=== PATIENT | male | born 1945 | race Caucasian/White ===

== ENCOUNTER → 2017-02-23 | Outpatient (CLI) | payer OTHER ==
[~2017-02-23] MED LIST: COQ10100 PO; METAMUCIL PO; METOPROLOL ER PO; MULT-506 PO; SIMV40TA2 PO; VITA400C15 PO
[2017-02-23 17:24] LABS: BASO % 0.2 %; BASO ABS # 0.02 K/uL (0-0.2); COMPLETE YES; EOS % 3.2 %; HEMATOCRIT 42.3 % (42-52); IG% 0.2 %; LYMPH % 31.3 %; MEAN CELL VOLUME 89.4 fL (80-100); MEAN CORPUSCULAR HEMOGLOBIN 30.7 pg (25-34); MEAN CORPUSCULAR HGB CONC 34.3 g/dl (32-36); MONO % 9.8 %; NEUT % 55.3 %; PLATELET COUNT 149 K/uL (130-400); RED BLOOD COUNT 4.73 M/uL (4.7-6.1); WHITE BLOOD COUNT 8.96 K/uL (4.8-10.8)
[2017-02-23 17:44] LABS: ALT/SGPT 27 U/L (12-78); AST/SGOT 15 U/L (15-37); BLOOD UREA NITROGEN 19 mg/dl (7-18); BUN/CREATININE RATIO 20.2 (10-20); CALCIUM 8.8 mg/dl (8.5-10.1); CARBON DIOXIDE 26 mmol/L (21-32); CHLORIDE 101 mmol/L (98-107); CREATININE 0.95 mg/dl (0.60-1.40); GLUCOSE 97 mg/dl (70-99); POTASSIUM 3.8 mmol/L (3.5-5.1); SODIUM 135 mmol/L (136-145)
[2017-02-23 17:55] LABS: ALB/GLOB RATIO 1.1 (0.9-2)
[2017-02-23 17:56] LABS: ALKALINE PHOSPHATASE 54 U/L (45-117); CHOLESTEROL 139 mg/dl (0-200); CHOLESTEROL/HDL RATIO 2.7; HDL CHOLESTEROL 52 mg/dl; LDL CHOLESTEROL CALCULATED 61 mg/dl; TRIGLYCERIDES 129 mg/dl (0-150); VERY LOW DENSITY LIPOPROT CALC 26 mg/dl
--- NOTE | 2017-03-03 12:12 | CODING QUERY MEDICAL NECESSITY ---
SUPPORTING DIAGNOSIS NEEDED A supporting diagnosis is required for the test/procedure performed on this patient in order for us to be reimbursed by the patient's insurance. Please provide a supporting diagnosis for the following test/procedure listed below next to the test name along with your signature. *If there is no additional diagnosis for this patient that would support the following test/procedure please document that below next to the test/procedure. Test(s)/Procedure(s) that require a supporting diagnosis: * VITAMIN D, 25-HYDROXY DIAGNOSIS: Provider Signature: Date: Thank you Inez Casas [place] Information Management Once completed, please kindly fax back to [phone] For questions please call [phone]
== END | disposition home or self-care (01) ==
LOC: C.LABBFT 10:34
PROVIDERS: ATTEND Internal Medicine Geriatric Medicine
DX: I10 Essential (primary) hypertension (principal); E78.5 Hyperlipidemia, unspecified; E87.1 Hypo-osmolality and hyponatremia; M86.9 Osteomyelitis, unspecified

== ENCOUNTER → 2017-07-15 | Outpatient (CLI) | payer OTHER ==
[2017-07-15 13:30] LABS: BLOOD UREA NITROGEN 12 mg/dl (7-18); BUN/CREATININE RATIO 15.3 (10-20); CALCIUM 9.3 mg/dl (8.5-10.1); CARBON DIOXIDE 29 mmol/L (21-32); CHLORIDE 97 mmol/L (98-107); CREATININE 0.81 mg/dl (0.60-1.40); GLUCOSE 93 mg/dl (70-99); POTASSIUM 4.9 mmol/L (3.5-5.1); SODIUM 127 mmol/L (136-145)
== END | disposition home or self-care (01) ==
LOC: C.LABBFT 11:02
PROVIDERS: ATTEND Internal Medicine Geriatric Medicine
DX: I10 Essential (primary) hypertension (principal)

== ENCOUNTER → 2017-07-20 | Outpatient (CLI) | payer OTHER ==
[2017-07-20 12:27] LABS: BLOOD UREA NITROGEN 15 mg/dl (7-18); BUN/CREATININE RATIO 19.2 (10-20); CALCIUM 9.2 mg/dl (8.5-10.1); CARBON DIOXIDE 31 mmol/L (21-32); CHLORIDE 97 mmol/L (98-107); CREATININE 0.79 mg/dl (0.60-1.40); GLUCOSE 96 mg/dl (70-99); POTASSIUM 4.9 mmol/L (3.5-5.1); SODIUM 129 mmol/L (136-145)
== END | disposition home or self-care (01) ==
LOC: C.LABBFT 11:02
PROVIDERS: ATTEND Internal Medicine Geriatric Medicine
DX: E87.1 Hypo-osmolality and hyponatremia (principal)

== ENCOUNTER → 2017-12-03 | Outpatient (CLI) | payer OTHER ==
[~2017-12-03] MED LIST changes: +ASPI81TA28 PO; +ATOR-24 PO; +COEN100C7 PO; +CZR50; +LOSA1TAB38 PO; +OMEG10007 PO; +SILD100T PO; +VITA1TAB4 PO; +[UNRECOGNIZED DRUG - REMARK] PO
== END | disposition home or self-care (01) ==
LOC: C.PATHSPEC 15:48
PROVIDERS: ATTEND Surgery
DX: L82.1 Other seborrheic keratosis (principal)

== ENCOUNTER → 2017-12-08 | Outpatient (CLI) | payer OTHER ==
--- NOTE | 2017-12-08 13:57 | DIAGNOSTIC IMAGING REPORT ---
CHEST 2 VIEWS ROUTINE CLINICAL HISTORY: Z01.818 Preoperative [id number] preoperative evaluation COMPARISON STUDY: 02/03/2016 FINDINGS: The bones soft tissues and hemidiaphragms are normal. The cardiomediastinal silhouette is normal. The lungs are clear. The pulmonary vasculature is normal. IMPRESSION: Negative chest. The above report was generated using voice recognition software. It may contain grammatical, syntax or spelling errors. Electronically signed by: Zen Wild M.D. 12/08/2017 1:55 PM Dictated Date/Time: 12/08/2017 1:55 PM
--- NOTE | 2017-12-08 14:14 | DIAGNOSTIC IMAGING REPORT ---
CAROTID DOPPLER NECK ART HISTORY: Carotid bruit R09.89 Carotid bruitPlease perform bilateral carotid doppler to COMPARISON: None. TECHNIQUE: Real-time, grayscale, and color Doppler sonography of the carotid arteries was performed. Imaging reviewed in the transverse and longitudinal planes. All measurements were calculated based on NASCET criteria. FINDINGS: Antegrade flow is seen in the bilateral vertebral arteries. The brachial pressures are hemodynamically similar. Mild plaque formation bilaterally The peak systolic velocity within the right ICA is 79. The right systolic ratio is 0.9. The peak systolic velocity within the left ICA is 62. The left systolic ratio is 0.8. IMPRESSION: No hemodynamically significant stenosis seen within the carotid arteries. Mild plaque formation bilaterally The above report was generated using voice recognition software. It may contain grammatical, syntax or spelling errors. Electronically signed by: Zen Wild M.D. 12/08/2017 2:13 PM Dictated Date/Time: 12/08/2017 2:12 PM
[2017-12-08 16:55] LABS: BASO % 0.3 %; BASO ABS # 0.03 K/uL (0-0.2); EOS % 3.1 %; EOS ABS # 0.28 K/uL (0-0.5); HEMATOCRIT 41.9 % (42-52); HEMOGLOBIN 14.7 g/dL (14.0-18.0); IG# 0.02 K/uL (0.00-0.02); LYMPH % 33.7 %; LYMPH ABS # 3.06 K/uL (1.2-3.4); MEAN CELL VOLUME 86.7 fL (80-100); MEAN CORPUSCULAR HEMOGLOBIN 30.4 pg (25-34); MEAN CORPUSCULAR HGB CONC 35.1 g/dl (32-36); MEAN PLATELET VOLUME 8.6 fL (7.4-10.4); MONO % 10.2 %; MONO ABS # 0.93 K/uL (0.11-0.59); NEUT % 52.5 %; NEUT ABS # 4.76 K/uL (1.4-6.5); PLATELET COUNT 163 K/uL (130-400); RED CELL DISTRIBUTION WIDTH CV 13.1 % (11.5-14.5); RED CELL DISTRIBUTION WIDTH SD 41.9 fL (36.4-46.3); WHITE BLOOD COUNT 9.08 K/uL (4.8-10.8)
[2017-12-08 19:21] LABS: ALBUMIN 3.7 gm/dl (3.4-5.0); ALT/SGPT 27 U/L (12-78); AST/SGOT 19 U/L (15-37); BLOOD UREA NITROGEN 15 mg/dl (7-18); CARBON DIOXIDE 29 mmol/L (21-32); CHOLESTEROL 129 mg/dl (0-200); CREATININE 0.97 mg/dl (0.60-1.40); GLUCOSE 94 mg/dl (70-99); POTASSIUM 4.5 mmol/L (3.5-5.1); SODIUM 130 mmol/L (136-145)
[2017-12-08 19:24] LABS: ALKALINE PHOSPHATASE 58 U/L (45-117); LDL CHOLESTEROL CALCULATED 55 mg/dl
== END | disposition home or self-care (01) ==
LOC: C.ULTRBC 12:53
PROVIDERS: ATTEND Surgery
DX: R09.89 Other specified symptoms and signs involving the circulatory and respiratory systems (principal)

== ENCOUNTER 2017-12-23 06:19 | Day surgery (SDC) | payer OTHER ==
[2017-12-09 12:52] VITALS: BMI 29.0
[~2017-12-23] VITALS: Ht 182.9 cm; Wt 97.7 kg
[~2017-12-23 06:19] MED LIST changes: -COQ10100 PO; -CZR50; +LACTATED RINGER'S 1000ML 1,000 ML IV SCH; -METAMUCIL PO; -METOPROLOL ER PO; -SIMV40TA2 PO; -VITA400C15 PO
[2017-12-23] MEDS ORDERED: CEFAZOLIN SOD 1 GM VIAL ONE (06:33)
[2017-12-23 06:40] VITALS: BP 141/76; PULSE 69; TEMP 36.5; O2SAT 96; Ht 182.9 cm; Wt 97.7 kg
[2017-12-23] MEDS ORDERED: MIDAZOLAM HCL 1 MG/ML 2ML VIAL ONE (07:36)
[2017-12-23] MEDS ORDERED: FENTANYL CITRATE INJ 50 MCG/1 ML 2 ML VIAL ONE ×2 (07:36→09:09)
--- NOTE | 2017-12-23 08:01 | History & Physical Bridge Note ---
H&P Re-Evaluation Bridge Note: I have examined the patient, reviewed the History & Physical and in the interval since the performance of the History & Physical I have noted the following changes of clinical significance: No changes noted at bedside, all questions answered pt marked told pt of normal car doppler report
[2017-12-23] MEDS ORDERED: BUPIVACAINE 0.5 % 5 MG/1 ML MPF 30ML VIAL ONE (08:03)
[2017-12-23] MEDS ORDERED: BACITRACIN 50000 UNIT VIAL ONE (08:03)
[2017-12-23] MEDS ORDERED: NEOSTIGMINE METHYLSULFATE 5 MG/5 ML SYR ONE (08:54)
[2017-12-23] MEDS ORDERED: GLYCOPYRROLATE INJ 0.2 MG/ML VIAL ONE (08:54)
[2017-12-23] MEDS ORDERED: LIDOCAINE HCL 2% 2 ML VIAL (20MG/ML) ONE (08:54)
[2017-12-23] MEDS ORDERED: EpHEDrine SULFATE 50MG/5ML SYR ONE (08:54)
[2017-12-23] MEDS ORDERED: ONDANSETRON INJ 2 MG/ML 2 ML VIAL ONE (08:54)
[2017-12-23] MEDS ORDERED: DEXAMETHASONE SOD INJ 4 MG/ML VIAL ONE (08:54)
[2017-12-23] MEDS ORDERED: PROPOFOL IV EMULSION 10 MG/ML 20 ML VIAL ONE (08:54)
[2017-12-23] MEDS ORDERED: ROCURONIUM BROMIDE 10 MG/ML 5 ML VIAL ONE ×2 (08:54→09:07)
[2017-12-23] MEDS ORDERED: LABETALOL HCL IV 5 MG/ML 20ML IV PRN (09:00)
[2017-12-23] MEDS ORDERED: ATROPINE SULFATE 0.1 MG/ML 5ML SYR IV PRN (09:00)
[2017-12-23] MEDS ORDERED: HYDROmorphone INJ 1 MG/ML SYR IV PRN (09:00)
[2017-12-23] MEDS ORDERED: ONDANSETRON INJ 2 MG/ML 2 ML VIAL IV PRN ×2 (09:00→09:45)
[2017-12-23] MEDS ORDERED: FLUMAZENIL 0.1 MG/1 ML 10 ML VIAL IV PRN (09:00)
[2017-12-23] MEDS ORDERED: EpHEDrine SULFATE INJ 50 MG/ML AMP IV PRN (09:00)
[2017-12-23] MEDS ORDERED: NALOXONE HCL 0.4 MG/1 ML VIAL/CARP IV PRN (09:00)
[2017-12-23] MEDS ORDERED: PROMETHAZINE HCL INJ 12.5 MG in SODIUM CHLORIDE 0.9% 50ML 50 ML IV PRN (09:00)
--- NOTE | 2017-12-23 09:29 | [facility] Post Operative Brief Note ---
Immediate Operative Summary Operative Date December 23, 2017. Pre-Operative Diagnosis Right inguinal hernia REC Post-Operative Diagnosis Right recurrent direct and indirect inguinal hernia Procedure(s) Performed Open Right Inguinal Hernia Repair with Mesh MARLEX ON LAY Surgeon Dr. Soto Electronics Processing Supervisor Surgeon(s) Aime Armas PA-C Estimated Blood Loss 5 cc Findings See Below rec indirect hernia and direct Specimens A: cyst from cord structure B: hernia sac Anesthesia Type General
[2017-12-23] MEDS ORDERED: SODIUM CHLORIDE 0.9% 1000ML 1,000 ML IV SCH (09:41)
[2017-12-23] MEDS ORDERED: OXYC-57 PO (09:43)
[2017-12-23] MEDS ORDERED: OXYCODONE/ACETAMINOPHEN 5-325 TAB PO PRN ×2 (09:45)
--- NOTE | 2017-12-23 09:46 | Discharge Instructions ---
Discharge Instructions Date of Service December 23, 2017. Admission Reason for Admission: Right Inguinal Hernia Discharge Discharge Diagnosis / Problem: Right Inguinal Hernia Discharge Goals Goal(s): Decrease discomfort, Improve function Activity Recommendations Activity Limitations: as noted below Lifting Limitations: no more than 10 pounds Exercise/Sports Limitations: until after follow-up appointment May Resume Sexual Activity: after follow-up appointment Shower/Bathe: tomorrow Driving or Machine Use: resume 3 days after discharge . Instructions / Follow-Up Instructions / Follow-Up Please call the [facility] at [phone] to arrange for staple removal next week. Please follow-up with Dr. Soto in the General Surgery Clinic in 1-2 weeks. Please call the office at [phone] to make an appointment if you do not have one already. Please call the office with any questions or concerns. Current Hospital Diet Patient's current hospital diet: Discharge Diet Recommended Diet: Regular Diet Procedures Procedures Performed: Open Right Inguinal Hernia Repair with Mesh MARLEX ON LAY Pending Studies Studies pending at discharge: yes List of pending studies: Pathology report. Laboratory Results Lipid Panel Test 12/08/17 13:21 Range/Units Triglycerides Level 103 0-150 mg/dl Cholesterol Level 129 0-200 mg/dl HDL Cholesterol 53 mg/dl Cholesterol/HDL Ratio 2.4 LDL Cholesterol, Calculated 55 mg/dl Medical Emergencies . Who to Call and When: Medical Emergencies: If at any time you feel your situation is an emergency, please call 911 immediately. . Non-Emergent Contact Non-Emergency issues call your: Primary Care Provider, Surgeon Call Non-Emergent contact if: temperature is above 101.5, your pain is not controlled, wound has increased drainage, wound has increased redness . "Provider Documentation" section prepared by Mali Armas. .
--- NOTE | 2017-12-23 10:22 | Anesthesiology Progress Note ---
Anesthesia Post Op Note Date & Time December 23, 2017 at 10:22 Vital Signs Pain Intensity: 0 Vital Signs Past 12 Hours Date Time Temp Pulse Resp B/P (MAP) Pulse Ox O2 Delivery O2 Flow Rate FiO2 12/23/17 10:15 36.2 78 20 153/84 96 Room Air 12/23/17 10:05 77 18 142/72 95 Room Air 12/23/17 09:55 67 16 157/80 100 Oxymask 10 12/23/17 09:46 36.2 95 16 154/74 99 Oxymask 10 12/23/17 06:40 36.5 69 18 141/76 (97) 96 Room Air Notes Mental Status: alert / awake / arousable, participated in evaluation Pt Amnestic to Procedure: Yes Nausea / Vomiting: adequately controlled Pain: adequately controlled Airway Patency, RR, SpO2: stable & adequate BP & HR: stable & adequate Hydration State: stable & adequate Anesthetic Complications: no major complications apparent
[2017-12-23 10:30] VITALS: BP 142/72; PULSE 71; TEMP 36.5; O2SAT 94
[2017-12-23 11:00] VITALS: BP 144/80; PULSE 79; O2SAT 96
[2017-12-23 11:30] VITALS: BP 146/68; PULSE 74; TEMP 36.2; O2SAT 96
--- NOTE | 2017-12-23 12:13 | OPERATIVE REPORT ---
DATE OF OPERATION: 12/23/2017 ALLERGY AND IMMUNOLOGY CHIEF: Mali Armas PA-C. PREOPERATIVE DIAGNOSIS: Right recurrent hernia. POSTOPERATIVE DIAGNOSES: Right recurrent indirect hernia and direct defect. PROCEDURE: Open repair of the right indirect and direct hernia with Marlex mesh tension free. SUMMARY: The patient was brought into the operating room theater and general anesthesia, IV antibiotics were given. The right lower quadrant was prepped with Betadine scrubbing solution and properly draped. We used preemptive local analgesia 0.5% Marcaine to infiltrate 2 fingerbreadths medial anterior superior iliac crest on the subfascial external oblique. Once we infiltrated the area, an incision was made parallel to the inguinal ligament, deepened through subcutaneous tissue onto the external oblique. Some subcutaneous plexus was divided. There was some scar tissue appreciated, scar tissue from previous repair. We started our dissection laterally onto the external oblique, placed a finger on top of the external oblique, elevated the tissue. The external oblique fascia was completely intact. We did not see any sutures. At this point, more local was used underneath the external oblique. Weitlaner was inserted. An incision was made parallel to the ligament, incised all the way to the external oblique on the external ring. At this point, we were able then to identify patient had a significant amount of tissue coming through the external ring. Once we freed that up, we were able to dissect that out, elevated the cord and its structures over a Kale drain. We at this point dissected down to the shelving portion of the inguinal ligament above the conjoined tendon. Again, we did not see any suture material at least prominent. At this point, we then were able to identify a hernial sac that was pretty extensive going down the cord. There we saw a significant amount of scar tissue. We took that down to free up the indirect sac from the cord structures. Along the cord structure, there was 1.5 cm sort of a cystic structure that appeared benign. We excised that and we sent it for permanent. This hernial sac was taken all the way down to the internal ring. We opened it and freed up the cord structures from it. Once we opened the external ring, having identified that sort of cystic structure that we took out of the cord, I was able to grab a piece of small bowel elevated out and there was no evidence of any mucinous area in the abdomen. This was just a precaution, I do not think there was anything alarming about this cystic structure that we took out. We then ligated the base of the hernial sac with 3-0 silk suture and resected the indirect sac, returned it retroperitoneally. We then closed the internal ring with some fascial sutures of 3-0 silk. We were able to then identify that the patient had also a direct defect with a piece of fat coming through. We did return that in retroperitoneal area with 3 interrupted silk sutures. We brought in a sheet of Marlex mesh and onlaid it down to the conjoined tendon and shelving portion of the ing ligament lateral to the internal ring that could only accommodate the tip of a hemostat. Throughout this procedure, we did not see any nerve structures at all, did not identify anything consistent with that. The mesh was onlaid, it was tension free. More local was used above in the conjoined tendon and on the wound itself. We irrigated and closed the external oblique fascia on top of the cord and the mesh with 3-0 silk sutures. We were able then to place a finger to reconstruct the external ring that could accommodate the finger. Subcutaneous tissue was brought back together with 2-0 Dexon interrupted and benjamin for skin edges. Dressing was applied. Procedure was tolerated well by the patient. Estimated blood loss approximately 5 mL. Patient was taken to recovery in good condition. I attest to the content of the Intraoperative Record and any orders documented therein. Any exceptions are noted below. MTDD
== END 2017-12-23 11:35 | disposition home or self-care (01) ==
LOC: C.ACU 06:19
PROVIDERS: ATTEND Surgery
DX: K40.90 Unilateral inguinal hernia, without obstruction or gangrene, not specified as recurrent (principal); R09.89 Other specified symptoms and signs involving the circulatory and respiratory systems; I35.8 Other nonrheumatic aortic valve disorders; N40.0 Benign prostatic hyperplasia without lower urinary tract symptoms; E78.5 Hyperlipidemia, unspecified; I10 Essential (primary) hypertension; I73.9 Peripheral vascular disease, unspecified; I25.10 Atherosclerotic heart disease of native coronary artery without angina pectoris; Z82.49 Family history of ischemic heart disease and other diseases of the circulatory system; Z82.3 Family history of stroke; Z87.891 Personal history of nicotine dependence; Z79.82 Long term (current) use of aspirin; Z88.8 Allergy status to other drugs, medicaments and biological substances

== ENCOUNTER 2020-12-12 10:10 | Inpatient (IN) ==
[2020-12-12 11:14] LABS: Basophils # (auto) 0.01 K/uL (0-0.2); Basophils % (auto) 0.1 %; Eosinophils # (auto) 0.08 K/uL (0-0.5); Eosinophils % (auto) 0.5 %; Hematocrit (blood only) 35.6 % (42-52); Hemoglobin 11.6 g/dL (14.0-18.0); Immature Granulocytes # (auto) 0.05 K/uL (0.00-0.02); Immature Granulocytes % (auto) 0.3 %; Lymphocytes # (auto) 1.26 K/uL (1.2-3.4); Mean Corpuscular Hemoglobin 26.5 pg (25-34); Mean Corpuscular Hgb Conc 32.6 g/dL (32-36); Mean Corpuscular Volume 81.3 fL (80-100); Mean Platelet Volume 8.6 fL (7.4-10.4); Monocytes # (auto) 1.01 K/uL (0.11-0.59); Monocytes % (auto) 6.4 %; Neutrophils # (auto) 13.28 K/uL (1.4-6.5); Neutrophils % (auto) 84.7 %; Nucleated RBC # (auto) 0.02 K/uL (0-0); Nucleated RBC % (auto) 0.1 %; Platelet Count 312 K/uL (130-400); RDW Coefficient of Variation 17.8 % (11.5-14.5); RDW Standard Deviation 51.8 fL (36.4-46.3); Red Blood Count 4.38 M/uL (4.7-6.1); White Blood Count 15.69 K/uL (4.8-10.8)
--- NOTE | 2020-12-12 11:26 | XRay Report ---
XR chest 1V portable HISTORY: Dyspnea COMPARISON: Chest 05/31/2020. FINDINGS: There is a small to moderate right pneumothorax with a maximal apical pleural gap of 2 cm. No left-sided pneumothorax. The heart is top normal in size. This remains unchanged. Diffuse intersti tial thickening persists. There are multifocal bilateral airspace opacities most pronounced within th e right lower lobe. This likely represents a multifocal pneumonia. Superimposed pulmonary edema. Also have a similar appearance. Small right pleural effusion and a trace left pleural effusion have sligh tly progressed. IMPRESSION: 1. A small to moderate right hydropneumothorax. 2. Multifocal bilateral airspace opacities consistent with a pneumonia. Superimposed pulmonary edema could also have a similar appearance. 3. These findings were discussed with Dr. Trevino at 11:15 AM on 12/12/2020. ACT 112: Negative or not required by law. Electronically signed by: Prateek Negron M.D. 12/12/2020 11:25 AM
[2020-12-12 11:27] LABS: INR 1.6 (0.9-1.1); Partial Thromboplastin Ratio 1.2; Partial Thromboplastin Time 32.5 Seconds (21.0-31.0); Prothrombin Time 15.7 Seconds (9.0-12.0)
[2020-12-12] MEDS ORDERED: CEFEPIME 2,000 MG/20 ML VIAL IV STA (11:28)
[2020-12-12 11:40] LABS: Alanine Aminotransferase 85 U/L (12-78); Albumin Globulin Ratio 0.5 (0.9-2); Albumin Level 2.7 gm/dl (3.4-5.0); Alkaline Phosphatase 154 U/L (45-117); Aspartate Aminotransferase 60 U/L (15-37); BUN Creatinine Ratio 26.3 (10-20); Bilirubin,Total 1.8 mg/dl (0.2-1); Blood Urea Nitrogen 31 mg/dl (7-18); Calcium 9.6 mg/dl (8.5-10.1); Carbon Dioxide 30 mmol/L (21-32); Chloride 100 mmol/L (98-107); Creatinine Clr Calc Pharmacy 59.9 ml/min; Est GFR (African American) 70.3; Est GFR (Non-African American) 60.6; Glucose 164 mg/dl (70-99); NT Pro B Type Natriuretic Pept 1907 pg/ml (0-900); Potassium 2.8 mmol/L (3.5-5.1); Sodium 137 mmol/L (136-145); Total Protein 7.7 gm/dl (6.4-8.2); Troponin I < 0.015 ng/ml (0-0.045)
[2020-12-12] MEDS ORDERED: POTASSIUM CHLORIDE / WTR 10 MEQ/100 ML PLCT IV ONE (12:58)
[2020-12-12] MEDS ORDERED: OPTIRAY 350 500ml IV ONE (13:29)
[2020-12-12 13:39] LABS: Influenza A virus by PCR Negative (Neg); Influenza B virus by PCR Negative (Neg); RSV by PCR Negative (Neg); SARS CoV2 RNA(COVID-19) InHosp NEGATIVE (Negative)
--- NOTE | 2020-12-12 13:44 | Emergency Department Note ---
Impression & Plan Pneumothorax, Pleural effusion, CHF (congestive heart failure), Pneumonia, Hypokalemia ED Provider Note INFORMANT: Patient ED PROVIDER(S): Tim Trevino MD CHIEF COMPLAINT: Shortness of breath PLAN: Disposition: Admitted Condition: Good Outpatient prescription management: none Referral: None MEDICAL DECISION MAKING: [Patient presented to the emergency department because of shortness of breath. He had history of pleural effusion. Twelve-lead ECG was performed and showed a sinus arrhythmia but no acute ischemic change. Chest x-ray was performed and was concerning for possible multifocal pneumonia as well as a pneumothorax on the right side. Given the patient's history is difficult to say when this pneumothorax occurred. He has been short of breath for weeks. The patient does have a productive cough. Laboratory testing revealed a positive leukocytosis of 15,000. Troponin and coags were unremarkable. His INR was 1.6. Patient is anticoagulated on Xarelto. His potassium was mildly low0 at 2.8. The patient's LFTs were minimally elevated as was his BNP. The patient was given IV potassium. He was given IV cefepime as well. He underwent CT imaging. Covid testing was performed and was negative. CT imaging did not reveal any evidence of pulmonary embolism. The patient had vancomycin ordered. I did discuss the findings with the patient and his family. I did consult with Dr. Zuluaga of pulmonary critical care. He and I discussed treatment options. He was unsure if the patient may require thoracic or IR intervention. After discussion he felt that the patient could hold his Xarelto and he would see him for chest tube management. I discussed this with his son, Priscilla Galaviz and he felt that was reasonable and would prefer his treatment to occur here. I did consult with Dr. Campbell of the hospitalist service. He will see the patient and admit him. Triage Nursing notes reviewed and agree them. Vital Signs: reviewed and remarkable for no significant abnormalities Differential diagnosis: Reactive airway disease, pneumonia, pneumothorax, COPD, CHF, infections, cardiac ischemia, pulmonary embolism, musculoskeletal, gastrointestinal, as well as other pathologies. Diagnostics interpreted by me: ECG: Twelve-lead ECG reveals sinus rhythm with sinus arrhythmia at 94 bpm. Left atrial large minute and left axis deviation. Septal Q waves present. No ST elevation. Cardiac Monitoring: Cardiac monitoring ordered by me: The patient was placed on continuous cardiac monitoring and observed. It revealed a normal sinus rhythm at 90 bpm. No evidence of dysrhythmia. Imaging studies: X-ray and CT scans as noted above. I refer you to the EMR for further details. HPI: The patient is a 75 year old male who presents to the Emergency Room with complaints of shortness of breath. This started few weeks ago and is gradually worsening. The patient also notes the following associated symptoms, productive cough. The patient has took extra Lasix this morning successfully for relieving factors. Current pain is rated as 0/10. Patient has a pleural effu ken present on the right side. He was to have it drained but this was held as he had a trip to [place]. He does follow with pulmonology here at [facility], Dr. Diaz. pt denies LOC, headache, fevers, chills, diaphoresis, visual changes, neck pain, chest pain, nausea, vomiting, abdominal pain, back pain, melena, hematochezia, urinary symptoms, numbness, weakness, lymphadenopathy, rash, or other complaints. ROS: See above HPI for pertinent positives & negatives. A total of 10 systems reviewed and were otherwise negative. PAST MEDICAL HISTORY:CAD, A. fib, anticoagulated,, interstitial lung disease, see below PAST SURGICAL HISTORY:See Below, FAMILY HISTORY:See Below SOCIAL HISTORY:See Below, retired HOME MEDICATIONS:See Below ALLERGIES:See Below VITALS:See Below PHYSICAL EXAMINATION: GENERAL: Awake, alert, mildly dyspneic-appearing, in no distress HENT: Normocephalic, atraumatic. Oropharynx unremarkable. EYES: Normal conjunctiva. Sclera non-icteric. NECK: Inspection normal. Non-tender. Supple. No nuchal rigidity. FROM. No masses. RESPIRATORY: Few scattered rales. Mildly diminished on the right. Normal respiratory effort. CARDIAC: Normal rate. Normal rhythm. No murmurs. No rubs. Extremities warm and well perfused. Pulses equal. No JVD. GI: Soft, non-distended. No tenderness to palpation. No rebound or guarding. No masses. RECTAL: Deferred. MUSCULOSKELETAL: Atraumatic. Chest examination reveals no tenderness. The back is symmetrical on inspection without obvious abnormality. There is no CVA tenderness to palpation. No joint edema. LOWER EXTREMITIES: Calves are equal size bilaterally and non-tender. No edema. No discoloration. NEURO: Normal sensorium. No sensory or motor deficits noted. SKIN: No rash or jaundice noted. Tim Trevino MD Past Med/Surg History Medical History (Updated 12/12/20 @ 13:40 by Tim Trevino MD) Hearing deficit BL KING History of osteomyelitis Hyperlipidemia Hypertension Irregular heart beat FOLLOWS W/ DR. ELKINS Osteoarthritis Tick bite Surgical History History of colonoscopy History of esophagogastroduodenoscopy (EGD) History of hemorrhoidectomy History of left inguinal hernia repair History of prostate surgery History of right inguinal hernia repair History of surgery on extremity LLE X 4 S/P TURP Family History Father Family history of diabetes mellitus Stroke syndrome Mother Parkinson disease Brother Coronary heart disease Social History Smoking Status: Former smoker Tobacco Type: Cigarettes Age Started Using Tobacco: 20; Age Quit Using Tobacco: 52; packs per day: 1; Years Smoked: 32; Cigarettes Per Day: 20; Number of Years Since Quit: 19; Second Hand Exposure: No; Hx Alcohol Use: Yes Hx Substance Use: No Preferred Language: German Communication Ability: Effective Broadcast Correspondent Required: No Beliefs That Will Affect Care: None marital status: Current Living Situation: Spouse current occupational status: employed 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 Feels Safe at Home: Yes Assistive Devices: Glasses and Hearing Aid - Bilateral Allergies Allergies Allergy/AdvReac Type Severity Reaction Status Date / Time lisinopril AdvReac Mild cough Verified 12/12/20 13:45 Home Meds Home Medications Medication Instructions Recorded Confirmed multivitamin 1 tab PO QAM 01/10/19 12/12/20 coenzyme Q10 10 mg capsule 10 mg PO DAILY cap 05/02/20 12/12/20 omega-3 fatty acids 1,000 mg 1,000 mg PO DAILY 05/02/20 12/12/20 capsule Previous Rx's Medication Instructions Recorded metoprolol succinate 200 mg PO QPM #180 tab 04/25/20 sildenafil 100 mg tablet 100 mg PO UD PRN #12 tab 05/13/20 rivaroxaban 20 mg tablet 20 mg PO DAILY #90 tab 05/20/20 atorvastatin 40 mg tablet 40 mg PO PM #90 tab 07/10/20 losartan 100 mg tablet 100 mg PO QPM #90 tab 07/15/20 pantoprazole 20 mg tablet,delayed 20 mg PO DAILY #90 tab 10/07/20 release furosemide 40 mg tablet 40 mg PO DAILY #90 tab 12/04/20 hydrochlorothiazide 25 mg tablet 25 mg PO DAILY #90 tab 12/04/20 clopidogrel 75 mg tablet 75 mg PO DAILY #90 tab 12/11/20 Results & Data (ED) Vital Signs Vital Signs - 24 hr 12/12/20 10:28 12/12/20 10:56 12/12/20 14:31 Temperature 37.2 C Temperature Source Temporal Artery Scan Pulse Rate 96 H Pulse Rate [Finger] 95 H 90 Respiratory Rate 18 24 20 Respiratory Effort / Characteristics Non-Labored Spontaneous Respiratory Depth Normal Respiratory Pattern Regular Blood Pressure 144/75 H Blood Pressure [Left Arm] 132/78 126/89 Blood Pressure Mean 98 Blood Pressure Mean [Left Arm] 96 101 Blood Pressure Position Sitting Pulse Oximetry 95 96 92 Oxygen Delivery Method Room Air Nasal Cannula Nasal Cannula Oxygen Flow Rate 2 Sepsis Recent Fever Within 48 Hours No Sepsis New/Unexplained Change in Mental Status N/A Sepsis Action Taken by Nursing No Action Required Laboratory Data Result diagrams: 12/12/20 10:55 12/12/20 10:55 Lab Results 12/12/20 12/12/20 12/12/20 Range/Units 10:55 10:55 10:55 WBC 15.69 H (4.8-10.8) K/uL RBC 4.38 L (4.7-6.1) M/uL Hgb 11.6 L (14.0-18.0) g/dL Hct 35.6 L (42-52) % MCV 81.3 (80-100) fL MCH 26.5 (25-34) pg MCHC 32.6 (32-36) g/dL RDW Std Deviation 51.8 H (36.4-46.3) fL RDW Coeff of Damon 17.8 H (11.5-14.5) % Plt Count 312 (130-400) K/uL MPV 8.6 (7.4-10.4) fL Immature Gran % (Auto) 0.3 % Neut % (Auto) 84.7 % Lymph % (Auto) 8.0 % [place] % (Auto) 6.4 % Eos % (Auto) 0.5 % Baso % (Auto) 0.1 % Neut # (Auto) 13.28 H (1.4-6.5) K/uL Lymph # (Auto) 1.26 (1.2-3.4) K/uL [place] # (Auto) 1.01 H (0.11-0.59) K/uL Eos # (Auto) 0.08 (0-0.5) K/uL Baso # (Auto) 0.01 (0-0.2) K/uL Immature Gran # (Auto) 0.05 H (0.00-0.02) K/uL Absolute Nucleated RBC 0.02 H (0-0) K/uL Nucleated RBC % (auto) 0.1 % PT 15.7 H (9.0-12.0) Seconds INR 1.6 H (0.9-1.1) APTT 32.5 H (21.0-31.0) Seconds PTT Ratio 1.2 Sodium 137 (136-145) mmol/L Potassium 2.8 L (3.5-5.1) mmol/L Chloride 100 (98-107) mmol/L Carbon Dioxide 30 (21-32) mmol/L Anion Gap 7.0 (3-11) BUN 31 H (7-18) mg/dl Creatinine 1.17 (0.6-1.4) mg/dl Est Cr Clr Drug Dosing 59.9 ml/min Est GFR ( Amer) 70.3 Est GFR (Non-Af Amer) 60.6 BUN/Creatinine Ratio 26.3 H (10-20) Glucose 164 H (70-99) mg/dl Calcium 9.6 (8.5-10.1) mg/dl Total Bilirubin 1.8 H (0.2-1) mg/dl AST 60 H (15-37) U/L ALT 85 H (12-78) U/L Alkaline Phosphatase 154 H (45-117) U/L Troponin I < 0.015 (0-0.045) ng/ml NT-Pro-B Natriuret Pep 1907 H (0-900) pg/ml Total Protein 7.7 (6.4-8.2) gm/dl Albumin 2.7 L (3.4-5.0) gm/dl Globulin 5.0 H (2.5-4.0) gm/dl Albumin/Globulin Ratio 0.5 L (0.9-2) COVID-19 Eval Order SARS-CoV-2 (PCR) (Negative) Influenza Type A (PCR) (Neg) Influenza Type B (PCR) (Neg) RSV (RT-PCR) (Neg) 12/12/20 12/12/20 Range/Units 12:23 12:23 WBC (4.8-10.8) K/uL RBC (4.7-6.1) M/uL Hgb (14.0-18.0) g/dL Hct (42-52) % MCV (80-100) fL MCH (25-34) pg MCHC (32-36) g/dL RDW Std Deviation (36.4-46.3) fL RDW Coeff of Damon (11.5-14.5) % Plt Count (130-400) K/uL MPV (7.4-10.4) fL Immature Gran % (Auto) % Neut % (Auto) % Lymph % (Auto) % [place] % (Auto) % Eos % (Auto) % Baso % (Auto) % Neut # (Auto) (1.4-6.5) K/uL Lymph # (Auto) (1.2-3.4) K/uL [place] # (Auto) (0.11-0.59) K/uL Eos # (Auto) (0-0.5) K/uL Baso # (Auto) (0-0.2) K/uL Immature Gran # (Auto) (0.00-0.02) K/uL Absolute Nucleated RBC (0-0) K/uL Nucleated RBC % (auto) % PT (9.0-12.0) Seconds INR (0.9-1.1) APTT (21.0-31.0) Seconds PTT Ratio Sodium (136-145) mmol/L Potassium (3.5-5.1) mmol/L Chloride (98-107) mmol/L Carbon Dioxide (21-32) mmol/L Anion Gap (3-11) BUN (7-18) mg/dl Creatinine (0.6-1.4) mg/dl Est Cr Clr Drug Dosing ml/min Est GFR ( Amer) Est GFR (Non-Af Amer) BUN/Creatinine Ratio (10-20) Glucose (70-99) mg/dl Calcium (8.5-10.1) mg/dl Total Bilirubin (0.2-1) mg/dl AST (15-37) U/L ALT (12-78) U/L Alkaline Phosphatase (45-117) U/L Troponin I (0-0.045) ng/ml NT-Pro-B Natriuret Pep (0-900) pg/ml Total Protein (6.4-8.2) gm/dl Albumin (3.4-5.0) gm/dl Globulin (2.5-4.0) gm/dl Albumin/Globulin Ratio (0.9-2) COVID-19 Eval Order CovFluRsv at [facility] SARS-CoV-2 (PCR) NEGATIVE (Negative) Influenza Type A (PCR) Negative (Neg) Influenza Type B (PCR) Negative (Neg) RSV (RT-PCR) Negative (Neg) Administered Medications Discontinued Medications Cefepime HCl (Maxipime) 2,000 mg in 20 mls @ 5 mls/min IV NOW STA; Protocol Stop: 12/12/20 11:31 Last Admin: 12/12/20 12:27 Dose: 5 mls/min Documented by: [id number] Potassium Chloride (K Sukh / Wtr) 10 meq in 100 mls @ 100 mls/hr IV ONE ONE Stop: 12/12/20 13:57 Last Admin: 12/12/20 13:42 Dose: 100 mls/hr Documented by: [id number] Ioversol (Optiray 350 500ml) 120 ml IV ONCE ONE Stop: 12/12/20 13:30 Last Admin: 12/12/20 13:30 Dose: 120 ml Documented by: [id number] Imaging Data Radiologist's Impression: Chest X-Ray 12/12/20 10:43 XR chest 1V portable HISTORY: Dyspnea COMPARISON: Chest 05/31/2020. FINDINGS: There is a small to moderate right pneumothorax with a maximal apical pleural gap of 2 cm. No left-sided pneumothorax. The heart is top normal in size. This remains unchanged. Diffuse interstitial thickening persists. There are multifocal bilateral airspace opacities most pronounced within the right lower lobe. This likely represents a multifocal pneumonia. Superimposed pulmonary edema. Also have a similar appearance. Small right pleural effusion and a trace left pleural effusion have slightly progressed. IMPRESSION: 1. A small to moderate right hydropneumothorax. 2. Multifocal bilateral airspace opacities consistent with a pneumonia. Superimposed pulmonary edema could also have a similar appearance. 3. These findings were discussed with Dr. Trevino at 11:15 AM on 12/12/2020. ACT 112: Negative or not required by law. Electronically signed by: Prateek Negron M.D. 12/12/2020 11:25 AM Chest CTA 12/12/20 11:28 CT ANGIOGRAM OF THE CHEST CLINICAL HISTORY: eval PE, pneumonia COMPARISON STUDY: No previous studies for comparison. TECHNIQUE: Following the IV administration of 120 mL of Optiray, CT angiogram of the thorax was performed from the thoracic inlet to the lung bases utilizing the pulmonary embolus protocol. Images are reviewed in the axial, sagittal, and coronal planes. IV contrast was administered without complication. MIP imaging was performed. A dose lowering technique was utilized adhering to the principles of ALARA. CT DOSE: 616.57 mGy.cm FINDINGS: There is mild hilar adenopathy and mild to moderate mediastinal lymphadenopathy. This a new finding when compared the preceding study. There is dilatation of the ascending thoracic aorta which measures 42 mm. There are no pulmonary artery filling defects to indicate acute pulmonary embolism. There is a trace right pleural effusion. There is a moderate right-sided pleural effusion. There is a mild to moderate right-sided hydropneumothorax. There are extensive bilateral pulmonary airspace opacities consistent with a multifocal pneumonia. There is underlying pulmonary emphysema. Images to the upper abdomen reveal moderate left adrenal gland thickening. There is 19 mm left lobe hepatic hypodensity likely representing a cyst. There is reflux of contrast into the inferior vena cava and hepatic veins suggesting elevated right heart pressures. There is splenomegaly IMPRESSION: 1. Mild to moderate right-sided hydropneumothorax 2. Extensive bilateral pulmonary airspace opacities consistent with a multifocal pneumonia. 3. Mild to moderate mediastinal lymphadenopathy, a new finding when compared the prior [address] 4. Mild aneurysmal dilatation of the ascending thoracic aorta which measures 42 mm 5. Splenomegaly 6. Reflux of contrast into the IVC and hepatic veins consistent with elevated right heart pressures ACT 112: Negative or not required by law. Electronically signed by: Sachin Morrow M.D. 12/12/2020 1:51 PM Discharge Plan Visit Data Chief Complaint: Shortness of Breath/Dyspnea Stated Complaint: SOB ED Provider: Tim Trevino Discharge Problem: Pneumothorax, Pleural effusion, CHF (congestive heart failure), Pneumonia, Hypokalemia Forms Stand Alone Forms: [facility] Prescriptions Prescriptions: No Action sildenafil 100 mg tablet 100 mg PO UD PRN (Reason: Erectile Dysfunction) Qty: 12 RF: 3 Xarelto 20 mg tablet 20 mg PO DAILY Qty: 90 RF: 3 atorvastatin 40 mg tablet 40 mg PO PM Qty: 90 RF: 3 losartan 100 mg tablet 100 mg PO QPM Qty: 90 RF: 3 pantoprazole 20 mg tablet,delayed release (DR/EC) 20 mg PO DAILY Qty: 90 RF: 1 furosemide [Lasix] 40 mg tablet 40 mg PO DAILY Qty: 90 RF: 3 hydrochlorothiazide 25 mg tablet 25 mg PO DAILY Qty: 90 RF: 3 clopidogrel 75 mg tablet 75 mg PO DAILY Qty: 90 RF: 3 omega-3 fatty acids [Fish Oil Concentrate] 1,000 mg capsule 1,000 mg PO DAILY RF: 0 coenzyme Q10 10 mg capsule 10 mg PO DAILY RF: 0 multivitamin Tablet 1 tab PO QAM RF: 0 metoprolol succinate 100 mg tablet extended release 24 hr 200 mg PO QPM Qty: 180 RF: 3 Referrals Referrals: Guy Luna III, MD [Primary Care Provider] -
--- NOTE | 2020-12-12 13:53 | CT Scan Report ---
CT ANGIOGRAM OF THE CHEST CLINICAL HISTORY: eval PE, pneumonia COMPARISON STUDY: No previous studies for comparison. TECHNIQUE: Following the IV administration of 120 mL of Optiray, CT angiogram of the thorax was perfo rmed from the thoracic inlet to the lung bases utilizing the pulmonary embolus protocol. Images are r eviewed in the axial, sagittal, and coronal planes. IV contrast was administered without complication . MIP imaging was performed. A dose lowering technique was utilized adhering to the principles of AL LOGAN. CT DOSE: 616.57 mGy.cm FINDINGS: There is mild hilar adenopathy and mild to moderate mediastinal lymphadenopathy. This a new finding w hen compared the preceding study. There is dilatation of the ascending thoracic aorta which measures 42 mm. There are no pulmonary artery filling defects to indicate acute pulmonary embolism. There is a trace right pleural effusion. There is a moderate right-sided pleural effusion. There is a mild to moderate right-sided hydropneumothorax. There are extensive bilateral pulmonary airspace opacities consistent with a multifocal pneumonia. Th ere is underlying pulmonary emphysema. Images to the upper abdomen reveal moderate left adrenal gland thickening. There is 19 mm left lobe h epatic hypodensity likely representing a cyst. There is reflux of contrast into the inferior vena cav a and hepatic veins suggesting elevated right heart pressures. There is splenomegaly IMPRESSION: 1. Mild to moderate right-sided hydropneumothorax 2. Extensive bilateral pulmonary airspace opacities consistent with a multifocal pneumonia. 3. Mild to moderate mediastinal lymphadenopathy, a new finding when compared the prior [address] 4. Mild aneurysmal dilatation of the ascending thoracic aorta which measures 42 mm 5. Splenomegaly 6. Reflux of contrast into the IVC and hepatic veins consistent with elevated right heart pressures ACT 112: Negative or not required by law. Electronically signed by: Sachin Morrow M.D. 12/12/2020 1:51 PM
[2020-12-12] MEDS ORDERED: AZITHROMYCIN 500 MG in DEXTROSE 5% 250 ML IV STA (14:29)
[2020-12-12] MEDS ORDERED: POTASSIUM CHLORIDE CRTAB 20 MEQ TABCR PO STA (14:31)
[2020-12-12] MEDS ORDERED: VANCOMYCIN CONSULT ACTIVE PRN ×2 (14:33→14:40)
[2020-12-12] MEDS ORDERED: VANCOMYCIN HCL 1,750 MG in SODIUM CHLORIDE 0.9% 500 ML IV STA (14:35)
[2020-12-12] MEDS ORDERED: VANCOMYCIN HCL 1,750 MG in SODIUM CHLORIDE 0.9% 500 ML IV ONE (14:40)
--- NOTE | 2020-12-12 15:01 | History & Physical Report ---
Date of Service December 12, 2020 Assessment & Plan (1) Pneumothorax: Aim O2 sats > 97% Repeat CXR in AM Consult pulmonology for further management (2) Multifocal pneumonia: Cepheid negative Vancomycin (can be discontinued if MRSA nose swab negative), Cefepime and Azithromycin Blood and Sputum culture Urine legionella (3) Pleural effusion: Appears relatively stable since July. Hold plavix and Xarelto planning on pigtail catheter tomorrow Consult pulmonology (4) CHF (congestive heart failure): Patient is relatively euvolemic at the current time but may benefit from IV diuretics once potassium normalizes (5) Interstitial lung disease: On no specific medications for this. No wheezing on exam Will defer any need for steroids to pulmonology (6) Hypokalemia: KCl 10meq IV given in ER, Give 40meq PO now (7) LPRD (laryngopharyngeal reflux disease): Continue pantoprazole 20mg PO daily (8) Atrial fibrillation: Paroxysmal. Currently in normal sinus rhythm. Holding anticoagulation due to need for thoracocentesis/chest tube. (9) Hypertension: Hold HCTZ due to hypokalmeia Can continue on lasix in AM if potassium normalized. Continue losartan and metoprolol (10) CAD (coronary artery disease): Holding clopidogrel and Xarelto pending pigtail catheter insertion Continue metoprolol, losartan and atorvastatin (11) DVT prophylaxis: SCDs Restart Xarelto when ok by pulmonology Admission and Anticipated Discharge Date Admission Date: December 12, 2020 History of Present Illness Chief Complaint: Shortness of breath Primary Care Provider: Guy Galaviz (father of Dr Galaviz, General surgery) is a 75-year-old male who presents to the ER with shortness of breath. He has chronic shortness of breath and cough which has been ongoing for just over a year (see below). However this morning he woke up much worse than usual. No fevers, chills, chest pain, nasal congestion. He denies any worsening cough or choking after eating. With regards to his cardiac history he was noted to have atrial fibrillation with heart rates in the 90s by his primary care physician in April 2020 in the setting of shortness of breath beginning in August 2019. And since that he also noticed a difference in his voice quality however neither recurrent laryngeal nerve involvement noted on ENT evaluation. He was started on apixaban and increase metoprolol succinate. However despite better rate control he continues to be short of breath and underwent cardiac catheterization in mid April with successful PCI with CANDIS to mid LAD and mid RCA. Exertional dyspnea reported to have improved significantly on follow-up however breathing still not as good as 1 year ago therefore referred to pulmonology. Initially seen by Dr. Diaz and May 2020 for ongoing shortness of breath. The patient is a prior smoker, quit 20 years ago. He has significant occupational exposure working in a [employer] business. PFT showed a restrictive lung deficit with FVC 46% of predicted. FEV1/FVC 75%. HRCT in July consistent with interstitial lung disease. Right-sided pleural effusion was getting better however thoracocentesis was held as the patient was planning to go to [place] for 3 months. In the ER CTA was concerning for hydropneumothorax multifocal pneumonia. He was started on cefepime IV. He was hypoxic requiring 2L O2 at the time of admission. His case was discussed with the on-call [employer] engineer Dr. Zuluaga to consider a chest tube in the morning. Allergies Allergy/AdvReac Type Severity Reaction Status Date / Time lisinopril AdvReac Mild cough Verified 12/12/20 13:45 Home Medications Medication Instructions Recorded Confirmed Type multivitamin 1 tab PO QAM 01/10/19 12/12/20 History metoprolol succinate 200 mg PO QPM #180 tab 04/25/20 12/12/20 Rx coenzyme Q10 10 mg capsule 10 mg PO DAILY cap 05/02/20 12/12/20 History omega-3 fatty acids 1,000 mg 1,000 mg PO DAILY 05/02/20 12/12/20 History capsule sildenafil 100 mg tablet 100 mg PO UD PRN #12 tab 05/13/20 12/12/20 Rx rivaroxaban 20 mg tablet 20 mg PO DAILY #90 tab 05/20/20 12/12/20 Rx atorvastatin 40 mg tablet 40 mg PO PM #90 tab 07/10/20 12/12/20 Rx losartan 100 mg tablet 100 mg PO QPM #90 tab 07/15/20 12/12/20 Rx pantoprazole 20 mg tablet,delayed 20 mg PO DAILY #90 tab 10/07/20 12/12/20 Rx release furosemide 40 mg tablet 40 mg PO DAILY #90 tab 12/04/20 12/12/20 Rx hydrochlorothiazide 25 mg tablet 25 mg PO DAILY #90 tab 12/04/20 12/12/20 Rx clopidogrel 75 mg tablet 75 mg PO DAILY #90 tab 12/11/20 12/12/20 Rx Past Med/Surg History Medical History Hearing deficit BL KING History of osteomyelitis Hydropneumothorax Hyperlipidemia Hypertension Irregular heart beat FOLLOWS W/ DR. ELKINS Osteoarthritis Tick bite Surgical History History of colonoscopy History of esophagogastroduodenoscopy (EGD) History of hemorrhoidectomy History of left inguinal hernia repair History of prostate surgery History of right inguinal hernia repair History of surgery on extremity LLE X 4 S/P TURP Family History Father Family history of diabetes mellitus Stroke syndrome Mother Parkinson disease Brother Coronary heart disease Social History Smoking Status: Former smoker Tobacco Type: Cigarettes Age Started Using Tobacco: 20; Age Quit Using Tobacco: 52; packs per day: 1; Years Smoked: 32; Cigarettes Per Day: 20; Number of Years Since Quit: 19; Second Hand Exposure: No; Do You Dip or Chew Tobacco: No; Tobacco Cessation Education Requested by Patient: No Hx Alcohol Use: Yes Alcohol type: wine Hx Substance Use: No Preferred Language: [place] Islander Communication Ability: Effective Restoration Officer Required: No Beliefs That Will Affect Care: None marital status: Current Living Situation: Spouse current occupational status: employed current occupation: owns own [email or web address] Other Information That Helps Us Care for You: No Feels Safe at Home: Yes Safety Concerns: Feels Safe At This Time Assistive Devices: Glasses and Hearing Aid - Bilateral Review of Systems Review of Systems: All systems reviewed & are unremarkable except as noted in HPI & below Physical Exam Constitutional: well developed and + frail appearing; + not well nourished and no acute distress Eyes: + anicteric sclerae; normal pupil size Respiratory: normal respiratory effort, + cough and able to speak in complete sentences; no respiratory distress, no labored breathing, does not use accessory muscles, not tachypneic, expiratory phase not prolonged, no audible wheezes and no stridor Auscultation: + diminished lung sounds (right base) and + crackles (coarse throughout); no wheezes Cardiovascular: Rate/Rhythm: regular rate and regular rhythm Heart Sounds: no murmur Vessels: no JVD Extremities: normal capillary refill and + pedal edema (trace pre-tibial); no calf tenderness Gastrointestinal (Abdomen): normal bowel sounds, soft, nontender, no hepatosplenomegaly Musculoskeletal: no cyanosis or clubbing, extremities motor strength 5/5 Skin: no rashes, warm and dry Neurologic: moves all extremities and awake; not confused Psychiatric: A+Ox3, euthymic affect Genitourinary: no CVA tenderness Results & Data Results & Data ([facility]) Vital Signs (Past 12 Hours) Vital Signs Temp Pulse Pulse Resp BP BP Pulse Ox 12/12/20 14:31 90 20 126/89 92 12/12/20 10:56 95 H 24 132/78 96 12/12/20 10:28 37.2 C 96 H 18 144/[address] ANGIOGRAM OF THE CHEST IMPRESSION: 1. Mild to moderate right-sided hydropneumothorax 2. Extensive bilateral pulmonary airspace opacities consistent with a multifocal pneumonia. 3. Mild to moderate mediastinal lymphadenopathy, a new finding when compared the prior [address] 4. Mild aneurysmal dilatation of the ascending thoracic aorta which measures 42 mm 5. Splenomegaly 6. Reflux of contrast into the IVC and hepatic veins consistent with elevated right heart pressures Medications Administered ER Medications Given: Cefepime 2g IV Potassium Chloride 10 meq IV ECG Indication: SOB/dyspnea Rate (beats per minute): 94 Rhythm: normal sinus Findings: + other (wandering atrial pacemaker) and + left axis deviation Comparison ECG Date: from (Apr 25, 2021) Change: no significant change Code Status & VTE Plan Code Status Full VTE Prophylaxis Plan VTE Prophylaxis will be ordered: Yes Reason for no VTE drug order: Contraindicated PG Care Time/CCT Total # of Minutes Spent Total Time Spent with Patient: Total time spent is greater than 50% in coordination of care (as documented) at patient's floor/unit and/or counseling patient: Coding Level of Care Code 20254 Initial Inpt Care Lvl 3 Diagnoses Pneumothorax J93.12 Pneumothorax type: spontaneous, secondary Multifocal pneumonia J18.9 Pleural effusion J90 CHF (congestive heart failure) I50.9 Interstitial lung disease J84.9 Hypokalemia E87.6 LPRD (laryngopharyngeal reflux disease) K21.9 Atrial fibrillation I48.0 Atrial fibrillation type: paroxysmal Hypertension I10 CAD (coronary artery disease) I25.10 DVT prophylaxis Z29.9 (1) Pneumothorax Pneumothorax type: spontaneous, secondary Qualified Code(s): J93.12 - Secondary spontaneous pneumothorax (2) Atrial fibrillation Atrial fibrillation type: paroxysmal Qualified Code(s): I48.0 - Paroxysmal atrial fibrillation
[2020-12-12 15:12] LABS: Appearance Urine Clear (Clear); Bilirubin Urine Negative (Negative); Blood Urine Negative (Negative); Color Urine Dark Yellow; Glucose Urine UA Negative (Negative); Ketones Urine Negative (Negative); Leukocyte Esterase Urine Negative (Negative); Nitrite Urine Negative (Negative); Protein Urine Negative (Negative); Specific Gravity Urine 1.019 (1.000-1.030); Urobilinogen Urine Negative (Negative)
--- NOTE | 2020-12-12 17:10 | Pulmonary Consultation ---
Date of Consultation December 12, 2020 Assessment & Plan (1) Hydropneumothorax: Mr. Galaviz is a 75 yo M with PMHx of upper lobe predominant ILD, pulmonary HTN, paroxysmal afib, CAD s/p PCI of mid LAD and mid RCA 04/2020, chronic diastolic congestive heart failure, HTN, and dyslipidemia who presented with acute on chronic SOB. Hydropneumothorax - CXR 12/12: "A small to moderate right hydropneumothorax. Multifocal bilateral airspace opacities consistent with a pneumonia. Superimposed pulmonary edema could also have a similar appearance." - Chest CTA 12/12: "Mild to moderate right-sided hydropneumothorax. Extensive bilateral pulmonary airspace opacities consistent with a multifocal pneumonia. Mild to moderate mediastinal lymphadenopathy, a new finding when compared the prior [address] - Secondary spontaneous pneumothorax - Please hold anticoagulation tonight - Procalcitonin negative today at 0.06. Repeat procalcitonin tomorrow - BNP elevated at 1907. Can consider gentle diuresis tomorrow. - Repeat CXR now - Check mycoplasma and legionella labs - Recommend continuing abx for atypical coverage - Continue supplemental oxygen as needed - Plan for pigtail catheter tomorrow (2) Interstitial lung disease: (3) Pneumonia: Supervising Physician Co-Signing Physician Notes Dr. Barakat Was the resident-physician during care of patient. I separately evaluated patient for wright portions of the history and the exam. I was present during the critical portion of medical decision making, and I discussed the case with the resident. I generally agree with the findings and plan except for any additions/exceptions noted. Patient with evidence of interstitial lung disease with superimposed groundglass opacities and consolidative changes likely related to acute volume overload. Potassium is currently low and thus diuretics are held. Recommend gentle IV diuresis once his potassium is repleted. Agree with broad-spectrum antibiotics at this time despite negative procalcitonin. If repeat procalcitonin is within normal limits, would de-escalate to only azithromycin. MRSA screen was negative. Will discontinue vancomycin. Urine Legionella antigen has been ordered. Patient also with evidence of right-sided hydropneumothorax. He did previously have a pleural effusion and he follows with Dr. Diaz in the clinic. There does appear to be pleural thickening noted on the right and there may be lung entrapment. I will place a pigtail catheter tomorrow to as he did take his Xarelto yesterday for chronic atrial fibrillation. It is unclear whether his lung will reexpand after placement of the chest tube. He is also on Plavix for a history of coronary artery disease with stenting in April 2020. I discussed this with the patient and patient's son. The patient's son is a general surgeon here at [facility]. History of Present Illness Reason for Consultation: hydropneumothorax History of Present Illness Mr. Galaviz is a 75 yo M with PMHx of upper lobe predominant ILD, pulmonary HTN, paroxysmal afib, CAD s/p PCI of mid LAD and mid RCA 04/2020, chronic diastolic congestive heart failure, HTN, and dyslipidemia who presented with acute on chronic SOB. Patient reports a hx of SOB for about 1 year. Shortness of breath progressively worsening over the past couple weeks with significant worsening of the SOB yesterday. Patient states that yesterday, the SOB was limiting his ADLs including walking up stairs. Was able to complete the full flight of stairs without a break but did need to stop at the top of the stairs to rest for a prolonged period of time. Also with persistent cough w/ intermittent sputum production. Coughing has been worse over the past couple weeks which he attributes to allergies; using Claritin-D prn with some benefit. Also reporting a mild frontal headache, again attributing this to the allergies. Patient sleeps supine with 1 pillow; denies orthopnea. He and his do report that he has a hx of snoring; no witnessed apneic events at night by the . Patient sleeps for 6-7 hours per night but does admit that he wakes up fatigued/ "not feeling refreshed." He has not had a previous sleep study. Patient notes that he is fairly active at baseline and that the SOB does not typically prevent him from doing ADLs or other activities. He does not use supplemental oxygen at home. Patient denies recent trauma including MVC or fall. Patient denies recent illness including fever, chills, abdominal pain, n/v/d. Regarding significant PMHx, patient has a [id number] hx of tobacco use; quit smoking 21 years ago. 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 Patient does not use any puffers or inhalers. Allergies Allergy/AdvReac Type Severity Reaction Status Date / Time lisinopril AdvReac Mild cough Verified 12/12/20 13:45 Home Medications Medication Instructions Recorded Confirmed Type multivitamin 1 tab PO QAM 01/10/19 12/12/20 History metoprolol succinate 200 mg PO QPM #180 tab 04/25/20 12/12/20 Rx coenzyme Q10 10 mg capsule 10 mg PO DAILY cap 05/02/20 12/12/20 History omega-3 fatty acids 1,000 mg 1,000 mg PO DAILY 05/02/20 12/12/20 History capsule sildenafil 100 mg tablet 100 mg PO UD PRN #12 tab 05/13/20 12/12/20 Rx rivaroxaban 20 mg tablet 20 mg PO DAILY #90 tab 05/20/20 12/12/20 Rx atorvastatin 40 mg tablet 40 mg PO PM #90 tab 07/10/20 12/12/20 Rx losartan 100 mg tablet 100 mg PO QPM #90 tab 07/15/20 12/12/20 Rx pantoprazole 20 mg tablet,delayed 20 mg PO DAILY #90 tab 10/07/20 12/12/20 Rx release furosemide 40 mg tablet 40 mg PO DAILY #90 tab 12/04/20 12/12/20 Rx hydrochlorothiazide 25 mg tablet 25 mg PO DAILY #90 tab 12/04/20 12/12/20 Rx clopidogrel 75 mg tablet 75 mg PO DAILY #90 tab 12/11/20 12/12/20 Rx Patient History Medical History Hearing deficit BL KING History of osteomyelitis Hydropneumothorax Hyperlipidemia Hypertension Irregular heart beat FOLLOWS W/ DR. ELKINS Osteoarthritis Tick bite Surgical History History of colonoscopy History of esophagogastroduodenoscopy (EGD) History of hemorrhoidectomy History of left inguinal hernia repair History of prostate surgery History of right inguinal hernia repair History of surgery on extremity LLE X 4 S/P TURP Family History Father Family history of diabetes mellitus Stroke syndrome Mother Parkinson disease Brother Coronary heart disease Social History Smoking Status: Former smoker Tobacco Type: Cigarettes Age Started Using Tobacco: 20; Age Quit Using Tobacco: 52; packs per day: 1; Years Smoked: 32; Cigarettes Per Day: 20; Number of Years Since Quit: 19; Second Hand Exposure: No; Do You Dip or Chew Tobacco: No; Tobacco Cessation Education Requested by Patient: No Hx Alcohol Use: Yes Alcohol type: wine Hx Substance Use: No Preferred Language: Bel[place]ian Communication Ability: Effective Animal Care Technician Required: No Beliefs That Will Affect Care: None marital status: Current Living Situation: Spouse current occupational status: employed current occupation: owns own [employer] Other Information That Helps Us Care for You: No Feels Safe at Home: Yes Safety Concerns: Feels Safe At This Time Assistive Devices: Glasses and Hearing Aid - Bilateral Review of Systems Constitutional: + fatigue; no fever and no chills Eyes: no worsening vision Ear, Nose, Mouth, Throat: + nasal congestion, + sinus pain/pressure and + snoring; no sore throat Respiratory: + cough, + dyspnea, + dyspnea on exertion, + snoring and + sputum production; no hemoptysis and no stopping breathing during sleep Cardiovascular: no chest pain and no orthopnea Gastrointestinal: no abdominal pain, no nausea, no vomiting, no constipation and no diarrhea/loose stools Genitourinary: no difficulty urinating Neurologic: + headache(s); no dizziness Allergy / Immunological: + seasonal rhinorrhea Physical Exam Physical Exam: GENERAL: Very pleasant male in no acute distress. Well developed and well nourished. Vital signs reviewed as above. EYES: PERRLA. EOMI. Anicteric sclerae. HENT: Moist mucous membranes. No pharyngeal erythema or exudates. No sinus tenderness to palpation throughout frontal or maxillary sinuses. No rhinorrhea noted. RESPIRATORY: Normal respiratory effort. Able to speak clearly in full sentences. O2 NC at 4.5 L. Lungs with scattered rhonci. Inspiratory and expiratory wheezing diffusely. CARDIOVASCULAR: Regular rate. Irregularly irregular rhythm. No murmurs. No JVD. ABDOMEN: Soft, non-tender and non-distended. No palpable masses. Normal bowel sounds. EXTREMITIES: No edema. He does have a compression stocking on the left lower extremity. Non-tender. SKIN: Warm, dry. No rashes or lesions. NEUROLOGIC: No focal neurological deficits. CN II-XII grossly intact. PSYCHIATRIC: Cooperative. Appropriate mood and affect. Results & Data Results & Data ([facility]) Vital Signs (Past 12 Hours) Vital Signs Temp Pulse Pulse Resp BP BP Pulse Ox 12/12/20 16:01 87 22 132/88 95 12/12/20 16:00 92 H 24 99 12/12/20 15:31 82 24 134/95 95 12/12/20 15:30 101 H 22 94 12/12/20 15:00 87 15 138/93 91 12/12/20 14:31 90 20 126/89 92 12/12/20 10:56 95 H 24 132/78 96 12/12/20 10:28 37.2 C 96 H 18 144/75 H 95 Resident Activity Tracking Resident Involvement: Resident Care Provided Care Provided: Adult Hospital Medicine
--- NOTE | 2020-12-12 17:41 | XRay Report ---
XR chest 1V portable CLINICAL HISTORY: hydropneumothorax COMPARISON STUDY: 12/12/2020 FINDINGS: There is a right apical pneumothorax with pleural separation of 22 mm. This remains essenti ally unchanged from the prior study. There are extensive bilateral pulmonary airspace opacities suspi cious for multifocal pneumonia. There is a small right pleural effusion.[ IMPRESSION: 1. Multifocal airspace opacity suspicious for a multifocal pneumonia 2. Small right pleural effusion 3. Persistent right pneumothorax with a pleural separation of approximately 22 mm ACT 112: Negative or not required by law. Electronically signed by: Sachin Morrow M.D. 12/12/2020 5:39 PM
[2020-12-12] MEDS ORDERED: ONDANSETRON INJ 2 MG/ML 2 ML VIAL IV PRN (18:08)
[2020-12-12] MEDS ORDERED: ACETAMINOPHEN 325 MG TAB PO PRN (18:08)
[2020-12-12] MEDS ORDERED: POLYETHYLENE (MIRALAX) 17 GM PACK PO PRN (18:08)
[2020-12-12] MEDS ORDERED: CEFEPIME CONSULT ACTIVE PRN (18:08)
--- NOTE | 2020-12-12 18:35 | Pharmacy Report ---
Pharmacy Abx Initial Consult - Date of Service December 12, 2020 - Pharmacy Dosing Scope Date of Consult: 12/12/20 Consultation requested by: Dr. Campbell Pharmacy is consulted to initiate Vancomycin + Cefepime (also ordered azithromycin) IV dosing therapy, order appropriate labs and adjust drug dose/frequency. - Subjective The patient is a 75 year old M admitted on 12/12/20 14:48. - Objective Height: 6 ft Weight: 87.9 kg Vital Signs (Past 12hrs): Vital Signs Temp Pulse Pulse Resp BP BP Pulse Ox 12/12/20 18:14 36.2 C L 90 20 142/75 H 93 12/12/20 17:31 86 22 122/85 98 12/12/20 17:30 102 H 18 98 12/12/20 17:00 90 24 129/98 99 12/12/20 16:30 87 20 133/84 99 12/12/20 16:02 90 20 92 12/12/20 16:01 87 22 132/88 95 12/12/20 16:00 92 H 24 99 12/12/20 15:31 82 24 134/95 95 12/12/20 15:30 101 H 22 94 12/12/20 15:00 87 15 138/93 91 12/12/20 14:31 90 20 126/89 92 12/12/20 10:56 95 H 24 132/78 96 12/12/20 10:28 37.2 C 96 H 18 144/75 H 95 Lab Results (24hrs): Laboratory Tests (24 Hours) 12/12/20 12/12/20 12/12/20 10:55 10:55 10:55 WBC 15.69 H Neut # (Auto) 13.28 H Creatinine 1.17 Est Cr Clr Drug Dosing 59.9 Procalcitonin 0.06 Micro Results: 12/12/20 12:12 Aerobic Blood Culture - Pending Blood Anaerobic Blood Culture - Pending 12/12/20 12:12 Aerobic Blood Culture - Pending Blood Anaerobic Blood Culture - Pending - Assessment & Plan Assessment 75 year old M initiated on IV Vanco + Cefepime + Azithromycin for pulmonary indiction. Plan Vancomycin IV * Patient meets criteria for vancomycin AUC dosing nomogram * AUC/SOCORRO is the preferred PK/PD target for vancomycin * Target AUC/SOCORRO = 400-600 * AUC guided dosing is effective and associated with decreased risk of nephrotoxicity * Loading Dose = Vancomycin 1,750 mg (20mg/kg) IV x 1 * Maintenance dose: 1,250 mg IV ( 14 mg/kg) every 12 hours * Goal trough level for Pulm : 15 to 20 mcg/mL * Trough level ordered for 12/14/20 @ 1000 Cefepime * Target dosing for pulmonary indication = 2g IV Q8hrs * No dose adjustment needed for crcl > 60 Pharmacy will continue to follow and will adjust dose/frequency as necessary. Thank you.
--- NOTE | 2020-12-12 20:24 | Billing Data ---
Date of Service December 12, 2020 Coding Level of Care Code 79301 Initial Inpt Care Lvl 3
[2020-12-12] MEDS: ATORVASTATIN 40 MG TAB PO SCH (21:43)
[2020-12-12] MEDS: METOPROLOL SUCC 50MG EXT REL TAB PO SCH (21:44)
[2020-12-12] MEDS: LOSARTAN POTASSIUM 50 MG TAB PO SCH (21:44)
[2020-12-12] MEDS: CEFEPIME 2,000 MG in SYRINGE 0 ML IV SCH (21:52)
[2020-12-12] MEDS ORDERED: VANCOMYCIN HCL 1,250 MG in SODIUM CHLORIDE 0.9% 250 ML IV SCH (22:00)
[2020-12-13] MEDS: MELATONIN 3 MG TAB PO PRN (02:12)
[2020-12-13] MEDS: CEFEPIME 2,000 MG in SYRINGE 0 ML IV SCH ×3 (04:23→20:19)
--- NOTE | 2020-12-13 06:49 | Electrocardiogram Report ---
Test Reason : Blood Pressure : / mmHG Vent. Rate : 094 BPM Atrial Rate : 094 BPM P-R Int : 160 ms QRS Dur : 084 ms QT Int : 380 ms P-R-T Axes : 042 -30 007 degrees QTc Int : 475 ms Sinus rhythm with frequent Premature supraventricular complexes vs wandering atrial pacemaker Possible Left atrial enlargement Left axis deviation Septal infarct (cited on or before 17-MAR-2007) Abnormal ECG When compared with ECG of 25-APR-2020 12:25, No significant change Confirmed by Donavon Moore ([id number]) on 12/13/2020 6:49:11 AM Referred By: Confirmed By:Donavon Moore
--- NOTE | 2020-12-13 07:15 | XRay Report ---
XR chest 1V portable CLINICAL HISTORY: Follow up ptx COMPARISON STUDY: Chest radiograph and chest CT December 12, 2020. FINDINGS: A [id number] right hydropneumothorax is similar to exam of December 12, 2020 performed at 5:17 PM. Superior pleural separation measures 2.1 cm. Interstitial thickening and bilateral airspa ce opacities within the lungs persist. Cardiomediastinal silhouette is stable. There is no left pneum othorax. IMPRESSION: 1. No significant change in a small to moderate right hydropneumothorax with pleural separation of 2. 1 cm. 2. Persistent interstitial thickening and bilateral opacities within the lungs which may reflect pneu monia or pulmonary edema. ACT 112: Negative or not required by law. Electronically signed by: Donny Raphael M.D. 12/13/2020 7:14 AM
[2020-12-13 07:25] LABS: INR 1.4 (0.9-1.1)
[2020-12-13 08:20] LABS: BUN Creatinine Ratio 33.4 (10-20); Calcium 9.5 mg/dl (8.5-10.1); Creatinine Clr Calc Pharmacy 70.8 ml/min; Est GFR (Non-African American) 74.2; Potassium 4.2 mmol/L (3.5-5.1)
[2020-12-13] MEDS: AZITHROMYCIN 250 MG in DEXTROSE 5% 250 ML IV SCH (08:50)
[2020-12-13] MEDS: MULTIVITAMIN TAB PO SCH (08:51)
[2020-12-13] MEDS: PANTOprazole 40 MG TAB PO SCH (08:51)
--- NOTE | 2020-12-13 12:12 | Procedure Note ---
Procedure Note Date of Service December 13, 2020 Note PIGTAIL CATHETER PLACEMENT NOTE: Procedure: Pigtail Catheter Chest Tube Placement Indication: Right-sided hydropneumothorax Anesthesia: 15 mL lidocaine 1% Written consent was obtained and placed on the chart. Timeout was done prior to the procedure. Prior to procedure, chest x-ray films were reviewed by myself and demonstrated. A time-out was completed verifying correct patient, procedure, site, positioning, and implant(s) or special equipment if applicable. Utilizing bedside ultrasound, chest wall was evaluated for location for optimal chest tube placement. Location between the fifth and sixth ribs were marked on the skin using gentle pressure. The right sided chest wall was prepped with chlorhexidine and draped in the typical sterile fashion. 15 mL of 1% Lidocaine without epinephrine was used to anesthetize the skin down to the dorsal surface of the fifth rib. Jag-colored pleural fluid return confirmed entry into the pleural space. Lidocaine was injected into the pleural space for increased anesthetization. Introducer needle on syringe was inserted in perpendicular fashion taking care to ride just above the dorsal surface of the fifth rib. Entry into the pleural space was heralded by jag-colored pleural fluid return into the syringe while under gentle aspiration. Guide wire was advanced into the pleural space without resistance and the introducer needle was subsequently removed. Scalpel was used to make small incision of the superficial tissue, parallel to the direction of the rib anatomy. Dilator was advanced uneventfully over the guide wire into the pleural space. 14 [place] Pigtail Catheter was inserted into the pleural space. Inner introducer and guide wire were removed. Drain was immediately connected to pre-prepared DEBBIE pleur-evac system. Pigtail was sutured securely in place and sterile dressing was applied. Chest tube was placed to -20 cmH2O suction. Patient tolerated procedure well. Blood Loss: Minimal Complications: None Post procedure Chest X-ray was ordered and reviewed by myself which demonstrated adequate placement. Coding CPT Codes Pulmonary/Thoracic - Pulmonary and Thoracic: 21784 Tube thoracostomy ([id number]) [facility] [place] ([place]) Pulmonary/Thoracic Procedure 1: Pulmonary and Thoracic: 64545 Tube thoracostomy
[2020-12-13 12:28] LABS: Basophils # (auto) 0.03 K/uL (0-0.2); Basophils % (auto) 0.2 %; Eosinophils # (auto) 0.33 K/uL (0-0.5); Eosinophils % (auto) 2.2 %; Hemoglobin 11.4 g/dL (14.0-18.0); Immature Granulocytes # (auto) 0.06 K/uL (0.00-0.02); Immature Granulocytes % (auto) 0.4 %; Lymphocytes # (auto) 1.58 K/uL (1.2-3.4); Lymphocytes % (auto) 10.4 %; Mean Corpuscular Hemoglobin 26.1 pg (25-34); Mean Corpuscular Hgb Conc 31.7 g/dL (32-36); Mean Corpuscular Volume 82.4 fL (80-100); Mean Platelet Volume 8.7 fL (7.4-10.4); Monocytes # (auto) 1.26 K/uL (0.11-0.59); Monocytes % (auto) 8.3 %; Neutrophils # (auto) 11.86 K/uL (1.4-6.5); Neutrophils % (auto) 78.5 %; Platelet Count 247 K/uL (130-400); RDW Coefficient of Variation 17.8 % (11.5-14.5); RDW Standard Deviation 52.8 fL (36.4-46.3); Red Blood Count 4.37 M/uL (4.7-6.1); White Blood Count 15.12 K/uL (4.8-10.8)
[2020-12-13 12:29] LABS: Glucose Pleural Fluid 140 mg/dl
--- NOTE | 2020-12-13 12:30 | XRay Report ---
XR chest 1V portable HISTORY: R sided chest tube placement COMPARISON: Chest 12/13/2020. FINDINGS: Interval placement of a right basilar pigtail pleural catheter. The right pleural effusion has essentially resolved in the interval. Small to moderate right pneumothorax is again noted. This i s decreased in size in the apical component which now measures a pleural gap of 1 cm. The basilar com ponent of the pneumothorax has increased in size. Cardiomegaly and multifocal bilateral airspace opac ities persist. IMPRESSION: 1. Interval placement right basilar pigtail pleural catheter. The right pleural effusion has essentia lly resolved. 2. Small to moderate right pneumothorax is again noted. The basilar component of the pneumothorax has progressed. The apical component has decreased in size. 3. No change in the multifocal airspace opacities/edema. ACT 112: Negative or not required by law. Electronically signed by: Prateek Negron M.D. 12/13/2020 12:29 PM
[2020-12-13 12:37] LABS: Amylase Pleural Fluid 12 U/L; LDH Pleural Fluid 231 U/L
[2020-12-13 13:39] LABS: Appearance Pleural Fluid CLOUDY; Basophils, Fluid 0 %; Color Pleural Fluid AMBER; Eosinophils, Fluid 2 %; Lymphocytes, Fluid 64 %; Mono,Macrophage,Mesothelial 20 %; Neutrophils, Fluid 14 %; RBC Pleural Fluid (A) 7000 /uL; Source Pleural Fluid RIGHT LUNG; WBC Pleural Fluid (A) 430 /uL
--- NOTE | 2020-12-13 13:44 | Pulmonology Progress Note ---
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 Right hydropneumothorax: The possibility of trapped lung physiology remains high and there does appear to be increased pleural thickening noted on the right. I placed the pigtail catheter 12/13/2020 and jag-colored fluid was removed from the right hemithorax. There is a grade 1 airleak. There has been some improvement in the apical portion of the pneumothorax, but increase in size of the basilar pneumothorax. The basilar portion is likely related to aspiration of fluid from the pleural space. We will continue the pigtail catheter to suction and consider increasing to -40 cm H2O if pneumothorax persists. Pleural fluid does not appear to be infected at this time. Cultures pending. The fluid does appear to be mildly exudative with a lymphocytic predominance. Cytology results are pending. Interstitial lung disease exacerbation: I placed an order for 20 mg of IV Lasix. His proBNP was elevated to 1907 on admission. I will also place him on 40 mg of p.o. prednisone. Procalcitonin is negative x2. Likelihood of typical bacterial pneumonia is low. We will continue with empiric antibiotics for 48 hours. We will likely de-escalate to azithromycin only tomorrow. MRSA screen was negative and thus vancomycin was discontinued. Urine Legionella and mycoplasma studies are pending. Of note, serological testing for rheumatological disorders was completed on 08/20/2020 and was negative. CK was checked as well which was within normal limits. Acute hypoxia: Secondary to the above. Possible component of acute on chronic hypoxic respiratory failure. Will need home oxygen evaluation prior to discharge. Coronary artery disease and atrial fibrillation: Can restart Plavix and Xarelto tomorrow. Pulmonary will continue to follow along with you. Thank you for the consultation. (2) Interstitial lung disease: (3) Acute respiratory failure with hypoxia: (4) Volume overload: Hypervolemia type: unspecified Qualified Code(s): E87.70 - Fluid overload, unspecified (5) Coronary artery disease: (6) Atrial fibrillation: Atrial fibrillation type: paroxysmal Qualified Code(s): I48.0 - Paroxysmal atrial fibrillation Admission and Anticipated Discharge Date Admission Date: December 12, 2020 Subjective Patient seen and examined this morning. Patient son was at bedside. Patient feels that his shortness of breath has modestly improved. He is currently on 2 L of nasal cannula. He denies any chest pain, fevers, chills or night sweats. Review of Systems Review of Systems: All systems reviewed & are unremarkable except as noted in HPI & below Physical Exam Constitutional: WD/WN, vitals as above Neck: normal visual inspection Respiratory: Diminished lung sounds bilaterally. Fine Velcro crackles noted. Cardiovascular: RRR, no murmur, no edema Gastrointestinal (Abdomen): normal bowel sounds, soft, nontender, no hepatosplenomegaly Neurologic: PERRL, EOMI, accommodation nl, no face palsy, no dysarthria Psychiatric: A+Ox3, euthymic affect Results & Data Results & Data ([facility]) Vital Signs (Past 12 Hours) Vital Signs Temp Pulse Pulse Resp BP Pulse Ox 12/13/20 08:06 97.7 F 91 H 19 138/84 95 12/13/20 07:36 85 12/13/20 04:00 98.2 F 89 18 113/65 94 12/13/20 01:52 116 H vital signs, labs and imaging reviewed PG Care Time/CCT Total # of Minutes Spent Total Time Spent with Patient: Total time spent is greater than 50% in coordination of care (as documented) at patient's floor/unit and/or counseling patient: Coding Level of Care Code 50901 Subseq Hosp Care Lvl 3 Diagnoses Hydropneumothorax J94.8 Interstitial lung disease J84.9 Acute respiratory failure with hypoxia J96.01 Volume overload E87.70 Hypervolemia type: unspecified Coronary artery disease I25.10 Atrial fibrillation I48.0 Atrial fibrillation type: paroxysmal
[2020-12-13] MEDS ORDERED: FUROSEMIDE 20 MG in SYRINGE 0 ML IV ONE (14:00)
[2020-12-13] MEDS: predniSONE 20 MG TAB PO SCH (14:37)
[2020-12-13] MEDS: METOPROLOL SUCC 50MG EXT REL TAB PO SCH (20:20)
[2020-12-13] MEDS: ATORVASTATIN 40 MG TAB PO SCH (20:20)
[2020-12-13] MEDS: LOSARTAN POTASSIUM 50 MG TAB PO SCH (20:20)
--- NOTE | 2020-12-13 21:14 | Hospitalist Progress Note ---
Date of Service December 13, 2020 Assessment & Plan (1) Pneumothorax: Aim O2 sats > 97% S/P pigtail, has removed over 500 ml of mildly exudative fluid: ONE CRITERIA is positive. Consult pulmonology for further management (2) Multifocal pneumonia: Cepheid negative Vancomycin (can be discontinued if MRSA nose swab negative), Cefepime and Azithromycin Blood and Sputum culture Urine legionella (3) Pleural effusion: Appears relatively stable since July. Hold plavix and Xarelto planning on pigtail catheter tomorrow Consult pulmonology appreciate input. (4) CHF (congestive heart failure): Patient is relatively euvolemic at the current time but may benefit from IV diuretics once potassium normalizes (5) Interstitial lung disease: On no specific medications for this. No wheezing on exam Will defer any need for steroids to pulmonology (6) Hypokalemia: KCl 10meq IV given in ER, Give 40meq PO now (7) LPRD (laryngopharyngeal reflux disease): Continue pantoprazole 20mg PO daily (8) Atrial fibrillation: Paroxysmal. Currently in normal sinus rhythm. Holding anticoagulation due to need for thoracocentesis/chest tube. (9) Hypertension: Hold HCTZ due to hypokalmeia Can continue on lasix in AM if potassium normalized. Continue losartan and metoprolol (10) CAD (coronary artery disease): Holding clopidogrel and Xarelto pending pigtail catheter insertion Continue metoprolol, losartan and atorvastatin (11) DVT prophylaxis: SCDs Restart Xarelto when ok by pulmonology Admission and Anticipated Discharge Date Admission Date: December 12, 2020 Subjective Patient reports feeling better today. Not back at baseline. Review of Systems Review of Systems: All systems reviewed & are unremarkable except as noted in HPI & below Physical Exam Physical Exam: Constitutional: well developed and + frail appearing; + not well nourished and no acute distress Eyes: + anicteric sclerae; normal pupil size Respiratory: normal respiratory effort, + cough and able to speak in complete sentences; no respiratory distress, no labored breathing, does not use accessory muscles, not tachypneic, expiratory phase not prolonged, no audible wheezes and no stridor Auscultation: + diminished lung sounds (right base) and + crackles (coarse throughout); no wheezes Cardiovascular: Rate/Rhythm: regular rate and regular rhythm Heart Sounds: no murmur Vessels: no JVD Extremities: normal capillary refill and + pedal edema (trace pre-tibial); no calf tenderness Gastrointestinal (Abdomen): normal bowel sounds, soft, nontender, no hepatosplenomegaly Musculoskeletal: no cyanosis or clubbing, extremities motor strength 5/5 Skin: no rashes, warm and dry Neurologic: moves all extremities and awake; not confused Psychiatric: A+Ox3, euthymic affect Genitourinary: no CVA tenderness Results & Data Results & Data ([facility]) Vital Signs (Past 12 Hours) Vital Signs Temp Pulse Pulse Resp BP Pulse Ox 12/13/20 19:58 36.8 C 100 H 20 129/81 94 12/13/20 15:54 92 H 12/13/20 15:32 36.9 C 118 H 19 147/84 H 92 PG Care Time/CCT Total # of Minutes Spent Total Time Spent with Patient: Total time spent is greater than 50% in coordination of care (as documented) at patient's floor/unit and/or counseling patient: Coding Level of Care Code 80435 Subseq Hosp Care Lvl 3 Diagnoses Pneumothorax J93.12 Pneumothorax type: spontaneous, secondary Multifocal pneumonia J18.9 Pleural effusion J90 CHF (congestive heart failure) I50.9 Interstitial lung disease J84.9 Hypokalemia E87.6 LPRD (laryngopharyngeal reflux disease) K21.9 Atrial fibrillation I48.0 Atrial fibrillation type: paroxysmal Hypertension I10 CAD (coronary artery disease) I25.10 DVT prophylaxis Z29.9 Time Spent (min) 35 (1) Pneumothorax Pneumothorax type: spontaneous, secondary Qualified Code(s): J93.12 - Secondary spontaneous pneumothorax (2) Atrial fibrillation Atrial fibrillation type: paroxysmal Qualified Code(s): I48.0 - Paroxysmal atrial fibrillation
[2020-12-14] MEDS: MELATONIN 3 MG TAB PO PRN (02:52)
[2020-12-14] MEDS: CEFEPIME 2,000 MG in SYRINGE 0 ML IV SCH ×3 (05:02→21:04)
[2020-12-14 06:44] LABS: Hematocrit (blood only) 37.5 % (42-52); Hemoglobin 11.8 g/dL (14.0-18.0); Mean Corpuscular Hemoglobin 25.9 pg (25-34); Mean Corpuscular Hgb Conc 31.5 g/dL (32-36); Mean Corpuscular Volume 82.2 fL (80-100); Mean Platelet Volume 8.6 fL (7.4-10.4); Platelet Count 297 K/uL (130-400); RDW Coefficient of Variation 17.8 % (11.5-14.5); RDW Standard Deviation 52.9 fL (36.4-46.3); Red Blood Count 4.56 M/uL (4.7-6.1); White Blood Count 17.72 K/uL (4.8-10.8)
[2020-12-14 07:01] LABS: BUN Creatinine Ratio 37.2 (10-20); Calcium 9.5 mg/dl (8.5-10.1); Est GFR (Non-African American) 70.7; Potassium 3.7 mmol/L (3.5-5.1)
[2020-12-14] MEDS: AZITHROMYCIN 250 MG in DEXTROSE 5% 250 ML IV SCH (08:00)
[2020-12-14] MEDS: MULTIVITAMIN TAB PO SCH (08:00)
[2020-12-14] MEDS: PANTOprazole 40 MG TAB PO SCH (08:00)
[2020-12-14] MEDS: predniSONE 20 MG TAB PO SCH (08:00)
--- NOTE | 2020-12-14 08:57 | XRay Report ---
XR chest 1V portable CLINICAL HISTORY: Pneumothorax. COMPARISON STUDY: 12/13/2020 FINDINGS: There is a right pleural pigtail catheter. The tip projects over the right chest wall and i t is not possible to determine whether this catheter is actually located within the pleural space. Th ere is a persistent right-sided pneumothorax. There is a small right pleural effusion. There are exte nsive bilateral pulmonary airspace opacities.[ IMPRESSION: 1. Persistent extensive bilateral pulmonary airspace opacities 2. Persistent right-sided pneumothorax with pleural separation of 13 mm. 3. The right-sided pleural pigtail catheter has been pulled back, and now projects over the right moncho st wall. It is not possible to determine whether this catheter is still located within the pleural sp david based on the current images. ACT 112: Negative or not required by law. Electronically signed by: Sachin Morrow M.D. 12/14/2020 8:55 AM
[2020-12-14] MEDS ORDERED: VANCOMYCIN TROUGH SCH (09:30)
--- NOTE | 2020-12-14 14:15 | XRay Report ---
XR chest 1V not portable CLINICAL HISTORY: Pneumothorax. Follow-up study status post chest tube clamping COMPARISON STUDY: Earlier in the day FINDINGS: A right-sided pigtail pleural catheter is again visualized. There is a persistent right-ronny ed pneumothorax with apical pleural separation of15 mm. There is blunting the right lateral costophre wanda angle suggesting small effusion. There are multifocal pulmonary airspace opacities consistent wit h a multifocal pneumonia.[ IMPRESSION: 1. Persistent right apical pneumothorax. The pleural separation currently measures 15 mm. This previo usly measured 13 mm 2. Multifocal airspace opacities consistent with a multifocal pneumonia 2. Right basilar pigtail pleural catheter ACT 112: Negative or not required by law. Electronically signed by: Sachin Morrow M.D. 12/14/2020 2:14 PM
[2020-12-14] MEDS: LOSARTAN POTASSIUM 50 MG TAB PO SCH (21:05)
[2020-12-14] MEDS: ATORVASTATIN 40 MG TAB PO SCH (21:05)
[2020-12-14] MEDS: METOPROLOL SUCC 50MG EXT REL TAB PO SCH (21:06)
--- NOTE | 2020-12-14 23:03 | Hospitalist Progress Note ---
Date of Service December 14, 2020 Assessment & Plan (1) Pneumothorax: Aim O2 sats > 97% S/P pigtail, has removed over 1500 ml of mildly exudative fluid: ONE CRITERIA is positive. Consult pulmonology: appreciate input Continue prednisone. Initially on empiric abx: vanc cefepime for 48 hours. will continue azithromycin for atypicals (2) Multifocal pneumonia: Cepheid negative Vancomycin (can be discontinued if MRSA nose swab negative), Cefepime and Azit hromycin Blood and Sputum culture Urine legionella (3) Pleural effusion: Appears relatively stable since July. Hold plavix and Xarelto planning on pigtail catheter tomorrow Consult pulmonology appreciate input. (4) CHF (congestive heart failure): Patient is relatively euvolemic at the current time but may benefit from IV diuretics once potassium normalizes (5) Interstitial lung disease: On no specific medications for this. No wheezing on exam Will defer any need for steroids to pulmonology (6) Hypokalemia: KCl 10meq IV given in ER, Give 40meq PO now (7) LPRD (laryngopharyngeal reflux disease): Continue pantoprazole 20mg PO daily (8) Atrial fibrillation: Paroxysmal. Currently in normal sinus rhythm. Holding anticoagulation due to need for thoracocentesis/chest tube. (9) Hypertension: Hold HCTZ due to hypokalmeia Can continue on lasix in AM if potassium normalized. Continue losartan and metoprolol (10) CAD (coronary artery disease): Holding clopidogrel and Xarelto pending pigtail catheter insertion Continue metoprolol, losartan and atorvastatin (11) DVT prophylaxis: SCDs Restart Xarelto when ok by pulmonology Admission and Anticipated Discharge Date Admission Date: December 12, 2020 Subjective Patient reports feeling breathing better. Review of Systems Review of Systems: All systems reviewed & are unremarkable except as noted in HPI & below Physical Exam Physical Exam: Constitutional: well developed and + frail appearing; + not well nourished and no acute distress Eyes: + anicteric sclerae; normal pupil size Respiratory: normal respiratory effort, + cough and able to speak in complete sentences; no respiratory distress, no labored breathing, does not use accessory muscles, not tachypneic, expiratory phase not prolonged, no audible wheezes and no stridor Auscultation: + diminished lung sounds (right base) and + crackles (coarse throughout); no wheezes Cardiovascular: Rate/Rhythm: regular rate and regular rhythm Heart Sounds: no murmur Vessels: no JVD Extremities: normal capillary refill and + pedal edema (trace pre-tibial); no calf tenderness Gastrointestinal (Abdomen): normal bowel sounds, soft, nontender, no hepatosplenomegaly Musculoskeletal: no cyanosis or clubbing, extremities motor strength 5/5 Skin: no rashes, warm and dry Neurologic: moves all extremities and awake; not confused Psychiatric: A+Ox3, euthymic affect Genitourinary: no CVA tenderness Results & Data Results & Data ([facility]) Vital Signs (Past 12 Hours) Vital Signs Temp Pulse Pulse Resp BP Pulse Ox 12/14/20 19:18 36.8 C 93 H 18 118/64 95 12/14/20 16:06 36.3 C L 85 20 146/74 H 93 12/14/20 15:10 83 PG Care Time/CCT Total # of Minutes Spent Total Time Spent with Patient: Total time spent is greater than 50% in coordination of care (as documented) at patient's floor/unit and/or counseling patient: Coding Level of Care Code 16188 Subseq Hosp Care Lvl 2 Diagnoses Pneumothorax J93.12 Pneumothorax type: spontaneous, secondary Multifocal pneumonia J18.9 Pleural effusion J90 CHF (congestive heart failure) I50.9 Interstitial lung disease J84.9 Hypokalemia E87.6 LPRD (laryngopharyngeal reflux disease) K21.9 Atrial fibrillation I48.0 Atrial fibrillation type: paroxysmal Hypertension I10 CAD (coronary artery disease) I25.10 DVT prophylaxis Z29.9 Time Spent (min) 25 (1) Pneumothorax Pneumothorax type: spontaneous, secondary Qualified Code(s): J93.12 - Secondary spontaneous pneumothorax (2) Atrial fibrillation Atrial fibrillation type: paroxysmal Qualified Code(s): I48.0 - Paroxysmal atrial fibrillation
[2020-12-15] MEDS: CEFEPIME 2,000 MG in SYRINGE 0 ML IV SCH ×2 (02:47→11:28)
[2020-12-15] MEDS: MELATONIN 3 MG TAB PO PRN (02:47)
[2020-12-15] MEDS: predniSONE 20 MG TAB PO SCH (08:05)
[2020-12-15] MEDS: PANTOprazole 40 MG TAB PO SCH (08:05)
[2020-12-15] MEDS: MULTIVITAMIN TAB PO SCH (08:05)
[2020-12-15] MEDS: AZITHROMYCIN 250 MG in DEXTROSE 5% 250 ML IV SCH (08:05)
[2020-12-15 08:23] LABS: Basophils # (auto) 0.01 K/uL (0-0.2); Basophils % (auto) 0.1 %; Eosinophils # (auto) 0.12 K/uL (0-0.5); Eosinophils % (auto) 0.7 %; Hematocrit (blood only) 37.1 % (42-52); Hemoglobin 11.7 g/dL (14.0-18.0); Immature Granulocytes # (auto) 0.06 K/uL (0.00-0.02); Immature Granulocytes % (auto) 0.4 %; Lymphocytes # (auto) 1.34 K/uL (1.2-3.4); Lymphocytes % (auto) 7.8 %; Mean Corpuscular Hemoglobin 25.9 pg (25-34); Mean Corpuscular Hgb Conc 31.5 g/dL (32-36); Mean Corpuscular Volume 82.3 fL (80-100); Mean Platelet Volume 8.9 fL (7.4-10.4); Monocytes # (auto) 1.17 K/uL (0.11-0.59); Monocytes % (auto) 6.8 %; Neutrophils # (auto) 14.44 K/uL (1.4-6.5); Neutrophils % (auto) 84.2 %; Platelet Count 300 K/uL (130-400); RDW Coefficient of Variation 17.9 % (11.5-14.5); RDW Standard Deviation 52.5 fL (36.4-46.3); Red Blood Count 4.51 M/uL (4.7-6.1); White Blood Count 17.14 K/uL (4.8-10.8)
[2020-12-15 08:37] LABS: BUN Creatinine Ratio 44.8 (10-20); Calcium 9.5 mg/dl (8.5-10.1); Creatinine Clr Calc Pharmacy 79.6 ml/min; Est GFR (African American) 97.4; Potassium 3.6 mmol/L (3.5-5.1)
--- NOTE | 2020-12-15 09:09 | XRay Report ---
XR chest 1V portable HISTORY: 75 years-old Male Follow up ptx follow-up study in a patient with right-sided pneumothorax COMPARISON: Chest radiograph 12/14/2020 TECHNIQUE: Portable AP view of the chest FINDINGS: Right apical pneumothorax. Have mildly progressed. Normal amount of layering fluid within the right l sadi base and may be partially located within the chest wall. A right basilar pigtail catheter is unch anged. Stable cardiomediastinal and hilar silhouettes. IMPRESSION: 1. Right-sided pigtail drainage catheter projects over the right lung base and may be partially locat ed within the chest wall. 2. Right-sided hydropneumothorax redemonstrated. 3. Slight progression of the bilateral airspace opacities. ACT 112: Negative or not required by law. The above report was generated using voice recognition software. It may contain grammatical, syntax o r spelling errors. Electronically signed by: Jerry Walker M.D. 12/15/2020 9:08 AM
[2020-12-15] MEDS ORDERED: POTASSIUM CHLORIDE CRTAB 20 MEQ TABCR PO ONE (09:30)
[2020-12-15] MEDS ORDERED: FUROSEMIDE 20 MG in SYRINGE 0 ML IV ONE (09:30)
--- NOTE | 2020-12-15 12:34 | Pulmonology Progress Note ---
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 Right hydropneumothorax: I suspect apical pneumothorax is likely related to lung entrapment. I removed the pigtail catheter as there was no significant increase in pneumothorax after clamping overnight. Outpatient thoracic surgery consultation can be considered for pleural biopsy/decortication and possible open lung biopsy if the pleural fluid cytology is unrevealing. Other considerations include indwelling pleural catheter if recurrence of pleural effusion is noted rapidly without obvious etiology. Interstitial lung disease exacerbation: Continue with prednisone taper for 14 days. I gave an additional dose of 20 mg IV Lasix today. He was given 40 mEq of potassium as well. Urine Legionella and mycoplasma studies are pending. Cefepime can be discontinued. Would recommend a 5-day course of azithromycin which can be continued upon discharge. Of note, serological testing for rheumatological disorders was completed on 08/20/2020 and was negative. CK was checked as well which was within normal limits. We do not have an obvious etiology for his interstitial lung disease at this time. Open lung biopsy may aid in directing immunosuppressive therapy. Acute hypoxia: Secondary to the above. Possible component of acute on chronic hypoxic respiratory failure. Will need home oxygen evaluation prior to discharge. Coronary artery disease and atrial fibrillation: Continue Plavix and Xarelto. Patient can be discharged home today. He will need close follow-up with his outpatient ice crusher, Dr. Diaz. Chest x-ray can be obtained next week on or Wednesday. I discussed this assessment and plan with the patient's son, Hans Galaviz, who is a general surgeon here at [facility]. He is agreeable with the treatment plan. Thank you for the consultation. (2) Interstitial lung disease: (3) Acute respiratory failure with hypoxia: (4) Volume overload: Hypervolemia type: unspecified Qualified Code(s): E87.70 - Fluid overload, unspecified (5) Coronary artery disease: (6) Atrial fibrillation: Atrial fibrillation type: paroxysmal Qualified Code(s): I48.0 - Paroxysmal atrial fibrillation Admission and Anticipated Discharge Date Admission Date: December 12, 2020 Subjective Seen examined this morning. His breathing is feeling better. He is sitting in a chair. He denies any chest pain. No fevers or chills. Minimal cough symptoms. Review of Systems Review of Systems: All systems reviewed & are unremarkable except as noted in HPI & below Physical Exam Constitutional: WD/WN, vitals as above Neck: normal visual inspection Respiratory: Diminished lung sounds bilaterally. Fine Velcro crackles noted. Cardiovascular: RRR, no murmur, no edema Gastrointestinal (Abdomen): normal bowel sounds, soft, nontender, no hepatosplenomegaly Neurologic: PERRL, EOMI, accommodation nl, no face palsy, no dysarthria Psychiatric: A+Ox3, euthymic affect Results & Data Results & Data ([facility]) Vital Signs (Past 12 Hours) Vital Signs Temp Pulse Pulse Pulse Resp BP Pulse Ox 12/15/20 11:59 76 74 22 114/76 97 12/15/20 09:20 76 24 112/72 12/15/20 07:42 67 12/15/20 07:09 97.5 F L 75 18 120/73 93 12/15/20 02:42 97.3 F L 91 H 18 108/74 93 vital signs, labs and imaging reviewed. PG Care Time/CCT Total # of Minutes Spent Total Time Spent with Patient: Total time spent is greater than 50% in coordination of care (as documented) at patient's floor/unit and/or counseling patient: Coding Level of Care Code 03807 Subseq Hosp Care Lvl 3 Diagnoses Hydropneumothorax J94.8 Interstitial lung disease J84.9 Acute respiratory failure with hypoxia J96.01 Volume overload E87.70 Hypervolemia type: unspecified Coronary artery disease I25.10 Atrial fibrillation I48.0 Atrial fibrillation type: paroxysmal
--- NOTE | 2020-12-15 15:51 | Discharge Summary ---
Date of Service December 15, 2020 Admission HPI Per Admitting Provider Michel Galaviz (father of Dr Galaviz, General surgery) is a 75-year-old male who presents to the ER with shortness of breath. He has chronic shortness of breath and cough which has been ongoing for just over a year (see below). However this morning he woke up much worse than usual. No fevers, chills, chest pain, nasal congestion. He denies any worsening cough or choking after eating. With regards to his cardiac history he was noted to have atrial fibrillation with heart rates in the 90s by his primary care physician in April 2020 in the setting of shortness of breath beginning in August 2019. And since that he also noticed a difference in his voice quality however neither recurrent laryngeal nerve involvement noted on ENT evaluation. He was started on apixaban and increase metoprolol succinate. However despite better rate control he continues to be short of breath and underwent cardiac catheterization in mid April with successful PCI with CANDIS to mid LAD and mid RCA. Exertional dyspnea reported to have improved significantly on follow-up however breathing still not as good as 1 year ago therefore referred to pulmonology. Initially seen by Dr. Diaz and May 2020 for ongoing shortness of breath. The patient is a prior smoker, quit 20 years ago. He has significant occupational exposure working in a [employer] business. PFT showed a restrictive lung deficit with FVC 46% of predicted. FEV1/FVC 75%. HRCT in July consistent with interstitial lung disease. Right-sided pleural effusion was getting better however thoracocentesis was held as the patient was planning to go to [place] for 3 months. In the ER CTA was concerning for hydropneumothorax multifocal pneumonia. He was started on cefepime IV. He was hypoxic requiring 2L O2 at the time of admission. His case was discussed with the on-call propulsion systems engineer Dr. Zuluaga to consider a chest tube in the morning. Principal Diagnosis Interstitial lung disease flare Discharge Exam Constitutional WD/WN, vitals as above Eyes EOM intact bilaterally; no conjunctival abnormality ENMT external ear and nose normal, oropharynx normal Neck trachea midline, no thyromegaly normal visual inspection Respiratory normal respiratory effort, lungs clear to auscultation no respiratory distress Cardiovascular RRR, no murmur, no edema Gastrointestinal (Abdomen) Inspection/Auscultation: abdomen normal to inspection; abdomen not distended Musculoskeletal no cyanosis or clubbing, extremities motor strength 5/5 Skin no rashes, warm and dry Neurologic moves all extremities and awake Psychiatric Orientation: alert, oriented to person and cooperative Discharge Data Allergies Allergy/AdvReac Type Severity Reaction Status Date / Time lisinopril AdvReac Mild cough Verified 12/12/20 13:45 Consultations 12/12/20 14:23 ED Decision to Admit Stat 12/12/20 14:30 Consult Pulmonology Routine Ordered Studies 12/12/20 11:28 CT angio chest PE protocol Stat 12/13/20 10:33 US point of care ultrasound Stat Hospital Course (1) Pneumothorax: Aim O2 sats > 97% S/P pigtail, has removed over 1500 ml of mildly exudative fluid: ONE CRITERIA is positive. Consult pulmonology: appreciate input - Pleural catheter was removed on 12/14. - Per pulmonology, stable for discharge. Continued prednisone taper x 2 weeks. - Discharged with two more days of azithromycin to finish aytpical coverage of pneumonia. - Follow up with Dr. Diaz (2) Multifocal pneumonia: Cepheid negative. MRSA nose swab was negative. - Empiric cefepime and azithromycin - Urine legionella pending on discharge. - As above (3) Pleural effusion: Appears relatively stable since July. - Held Plavix and Xarelto for pigtail catheter -> Resumed on discharge. - Consulted pulmonology (4) Hypokalemia: KCl 10meq IV given in ER & in the hospital. - Will need recheck of his K+ in 1 week with PCP. (5) CHF (congestive heart failure): Patient is relatively euvolemic at the current time. (6) Interstitial lung disease: On no specific medications for this. No wheezing on exam. - Plan as above (7) LPRD (laryngopharyngeal reflux disease): - Continue pantoprazole 20mg PO daily (8) Atrial fibrillation: Paroxysmal. Currently in normal sinus rhythm. - Rates well-controlled. - Resumed anticoagulation on discharge. (9) Hypertension: BP was 115/75 on discharge. - Continue home meds (10) CAD (coronary artery disease): - Continued metoprolol, losartan and atorvastatin - Restarted ASA on discharge. (11) DVT prophylaxis: SCDs Total Time Total Time Spent Total Time Spent (In Minutes): 35 Discharge Plan Discharge Items Patient Disposition: Home - Home Health Services Reason For Visit: HYDROPNEUMOTHORAX, MULTIFOCAL PNEUMONIA HYPOXIA Discharge Diagnosis: Pneumonia, spontaneous pneumothorax Activity: Resume your previous activity Non-emergency contact: Primary Care Provider and Bricklayer Tender Call non-emergency contact if: your symptoms worsen and your temperature is above 101 Follow-up/Referrals: Guy Luna III, MD [Primary Care Provider] - Diet: Heart Healthy Addtl Attending Provider Instructions: Mr. Galaviz, You were admitted to the hospital for a pneumonia and a slight pneumothorax which is when your lung gets a small hole in it and allows air to get in between the lung and your rib cage. The lung doctor put in a chest tube on the right side which allowed us to drain some of the air and fluid that had built up. He feels you are ready to go home with follow up with Dr. Diaz in 1-2 weeks to be sure you are doing well. We are sending you out on a few more antibiotics as well as a taper of your steroids to help calm any lung issues down. Take the azithromycin tomorrow morning and Wednesday, then you are done with that. Take the taper as follows: * Prednisone 40 mg (four 10 mg pills) once a day starting tomorrow (December 16) for 3 days, then * Prednisone 30 mg (three 10 mg pills) once a day starting December 19 for 3 days, then * Prednisone 20 mg (two 10 mg pills) once a day starting December 22 for 3 days, then * Prednisone 10 mg (one 10 mg pill) once a day starting December 25 for 3 days, then * Prednisone 5 mg (one-half 10 mg pill) once a day starting December 28 for 3 days, then stop. Please see your PCP next week and see Dr. Diaz when you are able in the next week as well. Pending Studies at Discharge: No Stand-Alone Forms: [email or web address], Smoking Cessation Medications and DC Order Prescriptions: New azithromycin 250 mg tablet 250 mg PO DAILY Qty: 2 RF: 0 prednisone 10 mg tablet 40 mg PO DAILY Qty: 32 RF: 0 Continued sildenafil 100 mg tablet 100 mg PO UD PRN (Reason: Erectile Dysfunction) Qty: 12 RF: 3 Xarelto 20 mg tablet 20 mg PO DAILY Qty: 90 RF: 3 atorvastatin 40 mg tablet 40 mg PO PM Qty: 90 RF: 3 losartan 100 mg tablet 100 mg PO QPM Qty: 90 RF: 3 pantoprazole 20 mg tablet,delayed release (DR/EC) 20 mg PO DAILY Qty: 90 RF: 1 furosemide [Lasix] 40 mg tablet 40 mg PO DAILY Qty: 90 RF: 3 hydrochlorothiazide 25 mg tablet 25 mg PO DAILY Qty: 90 RF: 3 clopidogrel 75 mg tablet 75 mg PO DAILY Qty: 90 RF: 3 omega-3 fatty acids [Fish Oil Concentrate] 1,000 mg capsule 1,000 mg PO DAILY RF: 0 coenzyme Q10 10 mg capsule 10 mg PO DAILY RF: 0 multivitamin Tablet 1 tab PO QAM RF: 0 metoprolol succinate 100 mg tablet extended release 24 hr 200 mg PO QPM Qty: 180 RF: 3 Discharge Orders: Discharge Order (Routine); Ordered 12/15/20 Ordered By: Dannie Newman Admission Data Admit Date/Time: 12/12/20 14:48 Attending Provider: Dannie Newman Admit Provider: Trent Campbell Primary Care Provider: Guy Luna III Other Providers: Luis Zuluaga ; Dannie Newman Other Interventions: Discharge Summary Assessment (RN) Last Done: 12/15/20 12:39 Coding Level of Care Code D/C Day Management >30 mins Diagnoses Pneumothorax J93.12 Pneumothorax type: spontaneous, secondary Multifocal pneumonia J18.9 Pleural effusion J90 Hypokalemia E87.6 CHF (congestive heart failure) I50.9 Interstitial lung disease J84.9 LPRD (laryngopharyngeal reflux disease) K21.9 Atrial fibrillation I48.0 Atrial fibrillation type: paroxysmal Hypertension I10 CAD (coronary artery disease) I25.10 DVT prophylaxis Z29.9
[2020-12-16 14:21] LABS: Mycoplasma pneumoniae Ab, IgG 3.56 (<=0.90)
== END 2020-12-15 15:27 | disposition home or self-care (01) | DRG 186 ==
LOC: ED 10:10 → SUATTDRO 14:48 → 2W 14:48